=== PATIENT | female | born 1965 | race Caucasian/White ===

== ENCOUNTER 2017-01-31 11:52 | Inpatient (IN) | payer BC ==
--- NOTE | 2017-01-31 12:01 | EDM.PDOC ---
ED HPI GENERAL MEDICAL PROBLEM - General Chief Complaint: Skin Complaint Stated Complaint: INFECTION IN FEET Time Seen by Provider: 01/31/17 12:01 Source of Information: Reports: Patient - History of Present Illness INITIAL COMMENTS - FREE TEXT/NARRATIVE: HISTORY AND PHYSICAL: History of present illness: Patient presents from [facility] or nurse practitioner Juan F, she is seeing podiatry through [facility] as well for diabetic foot ulcer on her left foot, she has been on Bactrim day 3 of 10 with improvement of her diabetic foot ulcer however she has expanding cellulitis failing oral antibiotics Patient course started on January 12, she has had several visits with podiatry as well as Jaun F, is initially on Keflex, currently on Bactrim with worsening of symptoms No fever nausea vomiting chills sweats Review of systems: As per history of present illness and below otherwise all systems reviewed and negative. Past medical history: As per history of present illness and as reviewed below otherwise noncontributory. Surgical history: As per history of present illness and as reviewed below otherwise noncontributory. Social history: No reported history of drug or alcohol abuse. Family history: As per history of present illness and as reviewed below otherwise noncontributory. Physical exam: HEENT: Atraumatic, normocephalic, pupils reactive, negative for conjunctival pallor or scleral icterus, mucous membranes moist, throat clear, neck supple, nontender, trachea midline. Lungs: Clear to auscultation, breath sounds equal bilaterally, chest nontender. Heart: S1S2, regular, negative for clicks, rubs, or JVD. Abdomen: Soft, nondistended, nontender. Negative for masses or hepatosplenomegaly. Negative for costovertebral tenderness. Pelvis: Stable nontender. Genitourinary: Deferred. Rectal: Deferred. Extremities: Atraumatic, negative for cords or calf pain. Neurovascular unremarkable. Neuro: Awake, alert, oriented. Cranial nerves II through XII unremarkable. Cerebellum unremarkable. Motor and sensory unremarkable throughout. Exam nonfocal. Left foot redness warmth and tenderness over the entire dorsum of the foot extending medially just over the ankle, healing diabetic foot ulcer noted no exudate for culture Diagnostics: []CBC, CMP, UA Blood culture 2 Therapeutics: []Vancomycin 1 g IV Impression: []Diabetic foot ulcer Cellulitis left foot Failed outpatient antibiotics Definitive disposition and diagnosis as appropriate pending reevaluation and review of above. Bilateral Feet Pain Score (Numeric/FACES): 7 - Related Data Allergies Allergy/AdvReac Type Severity Reaction Status Date / Time erythromycin base Allergy Hives Verified 01/31/17 11:57 latex Allergy Rash Verified 01/31/17 11:57 Clear Medical Tape Allergy Rash Uncoded 01/31/17 11:57 Home Meds: Home Meds Celecoxib [CeleBREX] 200 mg PO DAILY 07/22/16 [History] Cyclobenzaprine [Flexeril] 20 mg PO BID 07/22/16 [History] Omeprazole 20 mg PO TID 07/22/16 [History] Pregabalin [Lyrica] 200 mg PO TID 07/22/16 [History] amLODIPine [Norvasc] 5 mg PO DAILY 07/22/16 [History] Sulfamethoxazole/Trimethoprim [Septra DS] 800 mg PO BID 01/31/17 [History] Past Medical History HEENT History: Reports: None Cardiovascular History: Reports: Hypertension Respiratory History: Reports: None Gastrointestinal History: Reports: None Genitourinary History: Reports: None 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 Musculoskeletal History: Reports: Fibromyalgia, RA Neurological History: Reports: None Psychiatric History: Reports: None Endocrine/Metabolic History: Reports: None Hematologic History: Reports: None Immunologic History: Reports: None Oncologic (Cancer) History: Reports: None Dermatologic History: Reports: None - Infectious Disease History Infectious Disease History: Reports: Chicken Pox - Past Surgical History Neurological Surgical History: Reports: Other (See Below) Musculoskeletal Surgical History: Reports: Other (See Below) Social & Family History - Family History Family Medical History: Noncontributory - Tobacco Use Smoking Status *Q: Current Every Day Smoker Years of Tobacco use: 20 Packs/Tins Daily: 1 - Caffeine Use Caffeine Use: Reports: Coffee - Recreational Drug Use Recreational Drug Use: No ED ROS GENERAL - Review of Systems Review Of Systems: ROS reveals no pertinent complaints other than HPI. ED EXAM, SKIN/RASH Exam: See Below Course - Vital Signs Last Recorded V/S: Last Vital Signs Temp 35.7 C 01/31/17 12:00 Pulse 96 01/31/17 12:00 Resp 18 01/31/17 12:00 BP 132/83 01/31/17 12:00 Pulse Ox 98 01/31/17 12:00 - Orders/Labs/Meds Orders: Active Orders 24 hr Category Date Time Status Foot 2V Rt [CR] Stat Exams 01/31/17 13:01 Ordered CULTURE BLOOD [BC] Stat Lab 01/31/17 12:18 Received CULTURE BLOOD [BC] Stat Lab 01/31/17 12:35 Received SEDIMENTATION RATE AUTO [HEME] Stat Lab 01/31/17 12:18 Received UA W/MICROSCOPIC [URIN] Stat Lab 01/31/17 12:00 Uncollected Sodium Chloride 0.9% [Normal Saline] 1,000 ml Med 01/31/17 12:15 Active IV STAT Blood Culture x2 Reflex Set [OM.PC] Stat Oth 01/31/17 12:10 Ordered Medication Orders Sodium Chloride (Normal Saline) 1,000 mls @ 125 mls/hr IV STAT GLENDA Last Admin: 01/31/17 12:38 Dose: 125 mls/hr Labs: Laboratory Tests 01/31/17 01/31/17 Range/Units 12:18 12:18 WBC 6.34 (4.0-11.0) K/uL RBC 4.20 L (4.30-5.90) M/uL Hgb 13.5 (12.0-16.0) g/dL Hct 39.9 (36.0-46.0) % MCV 95.0 (80.0-98.0) fL MCH 32.1 H (27.0-32.0) pg MCHC 33.8 (31.0-37.0) g/dL RDW Std Deviation 48.6 (28.0-62.0) fl RDW Coeff of Fouzia 14 (11.0-15.0) % Plt Count 211 (150-400) K/uL MPV 10.30 (7.40-12.00) fL Neut % (Auto) 65.8 (48.0-80.0) % Lymph % (Auto) 25.1 (16.0-40.0) % [place] % (Auto) 6.3 (0.0-15.0) % Eos % (Auto) 2.5 (0.0-7.0) % Baso % (Auto) 0.3 (0.0-1.5) % Neut # (Auto) 4.2 (1.4-5.7) K/uL Lymph # (Auto) 1.6 (0.6-2.4) K/uL [place] # (Auto) 0.4 (0.0-0.8) K/uL Eos # (Auto) 0.2 (0.0-0.7) K/uL Baso # (Auto) 0.0 (0.0-0.1) K/uL Nucleated RBC % 0.0 /100WBC Nucleated RBCs # 0 K/uL Sodium 138 (136-146) mmol/L Potassium 4.0 (3.5-5.1) mmol/L Chloride 102 (98-110) mmol/L Carbon Dioxide 25 (21-31) mmol/L BUN 15 (6.0-23.0) mg/dL Creatinine 0.9 (0.6-1.5) mg/dL Est Cr Clr Drug Dosing 70.30 mL/min Estimated GFR (MDRD) > 60.0 ml/min Glucose 93 (60-110) mg/dL Calcium 9.6 (8.8-10.8) mg/dL Total Bilirubin 0.5 (0.1-1.5) mg/dL AST 29 (5-40) IU/L ALT 30 (8-54) IU/L Alkaline Phosphatase 88 (40-150) Total Protein 8.1 H (6.0-8.0) g/dL Albumin 4.2 (3.5-5.0) g/dL Globulin 3.9 H (2.0-3.5) g/dL Albumin/Globulin Ratio 1.1 L (1.3-2.8) Meds: Medications Generic Name Dose Route Start Last Admin Trade Name Freq PRN Reason Stop Dose Admin Sodium Chloride 1,000 mls @ 125 mls/hr 01/31/17 12:15 01/31/17 12:38 Normal Saline IV 125 mls/hr STAT GLENDA Administration Discontinued Medications Generic Name Dose Route Start Last Admin Trade Name Freq PRN Reason Stop Dose Admin Vancomycin HCl 1 gm/ Sodium 250 mls @ 250 mls/hr 01/31/17 12:11 01/31/17 12: 39 Chloride IV 01/31/17 13:10 250 mls/hr ONETIME ONE Administration Departure - Departure Time of Disposition: 13:13 Disposition: Admitted As Inpatient 64 Condition: Fair Clinical Impression: Cellulitis, Diabetic foot ulcer - Discharge Information Forms: ED Department Discharge - My Orders Last 24 Hours: My Active Orders 01/31/17 12:00 UA W/MICROSCOPIC [URIN] Stat 01/31/17 12:10 Blood Culture x2 Reflex Set [OM.PC] Stat 01/31/17 12:15 Sodium Chloride 0.9% [Normal Saline] 1,000 ml IV STAT 01/31/17 12:18 CULTURE BLOOD [BC] Stat SEDIMENTATION RATE AUTO [HEME] Stat 01/31/17 12:35 CULTURE BLOOD [BC] Stat 01/31/17 13:01 Foot 2V Rt [CR] Stat - Assessment/Plan Last 24 Hours: My Active Orders 01/31/17 12:00 UA W/MICROSCOPIC [URIN] Stat 01/31/17 12:10 Blood Culture x2 Reflex Set [OM.PC] Stat 01/31/17 12:15 Sodium Chloride 0.9% [Normal Saline] 1,000 ml IV STAT 01/31/17 12:18 CULTURE BLOOD [BC] Stat SEDIMENTATION RATE AUTO [HEME] Stat 01/31/17 12:35 CULTURE BLOOD [BC] Stat 01/31/17 13:01 Foot 2V Rt [CR] Stat
[2017-01-31] MEDS ORDERED: Sodium Chloride 0.9% 1,000 ML IV SCH (12:15)
[2017-01-31 13:06] LABS: CHLORIDE,CL 102 mmol/L (98-110); SODIUM,NA 138 mmol/L (136-146)
--- NOTE | 2017-01-31 13:27 | CR ---
EXAMINATION: Left foot HISTORY: Swelling COMPARISON: 03/12/2012 TECHNIQUE: 2 views FINDINGS: There is no acute osseous abnormality, dislocation, or fracture. There is an old healed se cond metatarsal fracture identified. Moderate hallux valgus is noted. Tiny plantar calcaneal spur. P unctate densities project over subcutaneous mild dorsal soft tissue swelling also noted overlying th e forefoot. Plantar surface of the heel. IMPRESSION: 1. No acute osseous abdomen identified. Soft tissue swelling noted over the forefoot. 2. Hallux valgus.
[2017-01-31] MEDS ORDERED: Acetaminophen 325 MG Tab PO PRN (13:48)
[2017-01-31] MEDS ORDERED: oxyCODONE 5 MG Tab PO PRN (13:48)
[2017-01-31] MEDS ORDERED: Ondansetron 4 MG/2 ML SDV IVPUSH PRN (13:48)
[2017-01-31] MEDS ORDERED: Omeprazole 20 MG Cap.CR PO SCH (14:00)
--- NOTE | 2017-01-31 14:03 | PCM.HP ---
H&P History of Present Illness - General Date of Service: 01/31/17 Admit Problem/Dx: L foot cellulitis - History of Present Illness Initial Comments - Free Text/Narative: This 51 year old female with pmh of RA, HTN, and severe bunions to bilateral feet presented to the ED today with concerns of erythema to L foot which has worsened after being on both Keflex and Bactrim. She reports around January 12, she started having some troubles with open skin to her bunions and callouses. She was seen by Elizabeth Rogel TUTORING ASSISTANT at [place] at that time and was placed on Keflex, nothing changed and she saw Elizabeth again on this last Sunday. Podiatry was in the clinic at this time and was able to see her. Dr. Casillas debrided both bunions and callouses to bilateral feet. He then placed her on Bactrim BID. She is on day 3 of this and is noticing worsening redness and pain to L foot. She was urged to be seen in the ED due to failed outpatient treatment for cellulitis. She denies fevers or chills at home, no chest pain, SOB or palpitations. Some nausea with taking Bactrim. No abdominal pain, urinary symptoms or diarrhea. In the ED no leukocytosis was noted. BMP WNL. ESR elevated at 57. L foot xray reveals soft tissue swelling over L forefoot. No acute osseous abnormality noted. Moderate hallux valgus noted. BC obtained and pending. She was treated with Vancomycin. She will be admitted for failed outpatient management of L foot cellulitis PCP, Elizabeth Rogel NP Bilateral Feet Pain Score (Numeric/FACES): 7 - Related Data Allergies/Adverse Reactions: Allergies Allergy/AdvReac Type Severity Reaction Status Date / Time erythromycin base Allergy Hives Verified 01/31/17 11:57 latex Allergy Rash Verified 01/31/17 11:57 Clear Medical Tape Allergy Rash Uncoded 01/31/17 11:57 Home Medications: Home Meds Celecoxib [CeleBREX] 200 mg PO DAILY 07/22/16 [History] Cyclobenzaprine [Flexeril] 20 mg PO BID 07/22/16 [History] Omeprazole 20 mg PO TID 07/22/16 [History] Pregabalin [Lyrica] 200 mg PO TID 07/22/16 [History] amLODIPine [Norvasc] 5 mg PO DAILY 07/22/16 [History] Sulfamethoxazole/Trimethoprim [Septra DS] 800 mg PO BID 01/31/17 [History] Past Medical History HEENT History: Reports: None Cardiovascular History: Reports: Hypertension, Other (See Below) (pericardial effusion, which was drained approx 2008.). Denies: Afib, Blood Clots/VTE/DVT, [place] Respiratory History: Reports: None. Denies: COPD, SOB Gastrointestinal History: Reports: GERD. Denies: GI Bleed Genitourinary History: Reports: None. 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 Musculoskeletal History: Reports: Fibromyalgia, RA Neurological History: Reports: None Psychiatric History: Reports: None Endocrine/Metabolic History: Reports: None Hematologic History: Reports: None Immunologic History: Reports: None Oncologic (Cancer) History: Reports: None Dermatologic History: Reports: None - Infectious Disease History Infectious Disease History: Reports: Chicken Pox - Past Surgical History Neurological Surgical History: Reports: Other (See Below) Musculoskeletal Surgical History: Reports: Other (See Below) Social & Family History - Family History Family Medical History: Noncontributory - Tobacco Use Smoking Status *Q: Current Every Day Smoker Years of Tobacco use: 20 Packs/Tins Daily: 1 Used Tobacco, but Quit: No Second Hand Smoke Exposure: No - Caffeine Use Caffeine Use: Reports: Coffee - Alcohol Use Number of Drinks Per Day: 3 Alcohol Use Frequency: Daily - Recreational Drug Use Recreational Drug Use: No - Living Situation & Occupation Living situation: Reports: Occupation: Employed H&P Review of Systems - Review of Systems: Review Of Systems: See Below General: Reports: No Symptoms. Denies: Fever, Chills, Malaise HEENT: Reports: No Symptoms. Denies: Headaches, Sinus Congestion, Sore Throat Pulmonary: Reports: No Symptoms. Denies: Shortness of Breath, Cough, Sputum Cardiovascular: Reports: Edema (bilateral feet). Denies: Chest Pain, Palpitations Gastrointestinal: Reports: Nausea (with Bactrim dosing). Denies: Abdominal Pain , Black Stool, Bloody Stool, Vomiting Genitourinary: Reports: No Symptoms. Denies: Dysuria, Frequency, Burning Musculoskeletal: Reports: Foot Pain (L & R feet and bunion pain) Skin: Reports: Erythema (L foot), Wound Psychiatric: Reports: No Symptoms Neurological: Reports: No Symptoms Exam - Exam Exam: See Below - Vital Signs Vital Signs: Last Vital Signs Temp 96.3 F 01/31/17 12:00 Pulse 96 01/31/17 12:00 Resp 18 01/31/17 12:00 BP 132/83 01/31/17 12:00 Pulse Ox 98 01/31/17 12:00 Weight: 86.3 kg - Exam General: Alert, Oriented, Cooperative HEENT: Conjunctiva Clear, Hearing Intact, Mucosa Moist & [place], Posterior Pharynx Clear, Pupils Equal, Pupils Reactive, PERRLA Neck: Supple, Trachea Midline, 2 Lungs: Clear to Auscultation, Normal Respiratory Effort Cardiovascular: Regular Rate, Regular Rhythm, Normal S1, Normal S2 GI/Abdominal Exam: Normal Bowel Sounds, Soft, Non-Tender, No Organomegaly, No Distention, No Abnormal Bruit, No Mass, Pelvis Stable Extremities: Normal Range of Motion, Normal Capillary Refill, Pedal Edema, Joint Swelling, Other (bunions noted to both L and R feet, with open skit to both. No purulent drainage, both wound bend clean. Some dry flaky skin noted surround these areas andfurther callouses. Erythem extends from L bunion up to dorsum and medial malleous to ventral damon. Warm and tenderness noted to any palpation. No fluctuance noted.) Skin: Wound (See above description) Neurological: Cranial Nerves Intact Neuro Extensive - Mental Status: Alert, Oriented x3, Normal Mood/Affect, Normal Cognition, Memory Intact Psychiatric: Alert, Normal Affect, Normal Mood - Patient Data Result Diagrams: 01/31/17 12:18 01/31/17 12:18 *Q Meaningful Use (ADM) - VTE *Q VTE Criteria *Q: - VTE Risk Assess *Q Each Risk Factor Represents 1 Point: Age 41 - 59 years, Swollen Legs, Current Total Score 1 Point Risk Factors: 2 Each Risk Factor Represents 2 Points: None Total Score 2 Point Risk Factors: 0 Each Risk Factor Represents 3 Points: None Total Score 3 Point Risk Factors: 0 Each Risk Factor Represents 5 Points: None Total Score 5 Point Risk Factors: 0 Venous Thromboembolism Risk Factor Score *Q: 2 - Stroke *Q Stroke Criteria *Q: - AMI *Q AMI Criteria *Q: - Problem List (1) Cellulitis SNOMED Code(s): 739122893 ICD Code: L03.90 - CELLULITIS, UNSPECIFIED Status: Acute Current Visit: Yes Qualifiers: Site of cellulitis: extremity Site of cellulitis of extremity: lower extremity Laterality: left Qualified Code(s): L03.116 - Cellulitis of left lower limb (2) RA (rheumatoid arthritis) SNOMED Code(s): 85253172 ICD Code: M06.9 - RHEUMATOID ARTHRITIS, UNSPECIFIED Status: Chronic Current Visit: Yes Qualifiers: Rheumatoid arthritis location: wrist Laterality: bilateral (3) Fibromyalgia SNOMED Code(s): 173882630 ICD Code: M79.7 - FIBROMYALGIA Status: Chronic Current Visit: Yes (4) Hallux valgus (acquired), left foot SNOMED Code(s): 30837768 ICD Code: M20.12 - HALLUX VALGUS (ACQUIRED), LEFT FOOT Status: Chronic Current Visit: Yes (5) Hallux valgus (acquired), right foot SNOMED Code(s): 56707472 ICD Code: M20.11 - HALLUX VALGUS (ACQUIRED), RIGHT FOOT Status: Chronic Current Visit: Yes (6) HTN (hypertension) SNOMED Code(s): 07573524 ICD Code: I10 - ESSENTIAL (PRIMARY) HYPERTENSION Status: Chronic Current Visit: Yes Qualifiers: Hypertension type: essential hypertension Qualified Code(s): I10 - Essential (primary) hypertension (7) Nicotine abuse SNOMED Code(s): 23539470 ICD Code: Z72.0 - TOBACCO USE Status: Chronic Current Visit: Yes Problem List Initiated/Reviewed/Updated: Yes Orders Last 24hrs: Active Orders 24 hr Category Date Time Status Ambulate [RC] ASDIRECTED Care 01/31/17 13:48 Ordered Elevate Extremity [RC] BID Care 01/31/17 13:48 Ordered Oxygen Therapy [RC] PRN Care 01/31/17 13:48 Ordered VTE/DVT Education [RC] PER UNIT ROUTINE Care 01/31/17 13:48 Ordered Vital Signs [RC] Q4H Care 01/31/17 13:48 Ordered Wound Care [RC] DAILY Care 01/31/17 13:48 Ordered Regular Diet [DIET] Diet 01/31/17 Dinner Ordered BASIC METABOLIC PANEL,BMP [CHEM] AM Lab 02/01/17 05:11 Ordered BASIC METABOLIC PANEL,BMP [CHEM] AM Lab 02/02/17 05:11 Ordered BASIC METABOLIC PANEL,BMP [CHEM] AM Lab 02/03/17 05:11 Ordered CBC WITH AUTO DIFF [HEME] AM Lab 02/01/17 05:11 Ordered CBC WITH AUTO DIFF [HEME] AM Lab 02/02/17 05:11 Ordered CBC WITH AUTO DIFF [HEME] AM Lab 02/03/17 05:11 Ordered Acetaminophen [Tylenol] Med 01/31/17 13:48 Ordered 650 mg PO Q4H PRN Cyclobenzaprine [Flexeril] Med 01/31/17 21:00 Ordered 20 mg PO BID Enoxaparin [Lovenox] Med 01/31/17 14:00 Ordered 40 mg SUBCUT DAILY Omeprazole [Omeprazole] Med 01/31/17 14:00 Ordered 20 mg PO TID Ondansetron [Zofran] Med 01/31/17 13:48 Ordered 4 mg IVPUSH Q4H PRN Pregabalin [Lyrica] Med 01/31/17 14:00 Ordered 200 mg PO TID Vancomycin Pharmacy to Dose [Pharmacy to Dose - Med 01/31/17 14:00 Ordered Vancomycin] 1 dose .XX ASDIRECTED amLODIPine [Norvasc] Med 02/01/17 09:00 Ordered 5 mg PO DAILY oxyCODONE Med 01/31/17 13:48 Ordered 5 mg PO Q4H PRN Resuscitation Status Routine Resus Stat 01/31/17 13:48 Ordered Medication Orders Sodium Chloride (Normal Saline) 1,000 mls @ 125 mls/hr IV STAT GLENDA Last Admin: 01/31/17 12:38 Dose: 125 mls/hr Assessment/Plan Comment:: This 51 year old female admitted with L foot cellulitis, which failed outpatient treatment 1. Cellulitis: Will place on Vancomycin. Continue betadine cleanse and gauze wraps per Podiatry. Monitor closely. ESR elevated. No drainage. BC pending. Will order Oxycodone for pain PRN 2. Open wounds: Continue betadine and gauze wrap to bilateral bunions as per Podiatry. 3. HTN: Continue Norvasc 4. Fibromyalgia: Continue Flexeril and Gabapentin VTE prophylaxis: Lovenox Dispo: 2-3 days.
[2017-01-31] MEDS: Enoxaparin 40 MG/0.4 ML Syringe SUBCUT SCH (14:22)
[2017-01-31] MEDS: Pregabalin 200 MG Cap PO SCH ×2 (14:22→21:09)
[2017-01-31] MEDS: Nicotine 14 MG/24 Hr Patch TRDERM SCH (14:22)
[2017-01-31] MEDS: Docusate Sodium 100 MG Cap PO SCH (15:08)
[2017-01-31] MEDS: Polyethylene Glycol 3350 Powder 17 GM Packet PO SCH (15:08)
[2017-01-31] MEDS: Morphine 4 MG/ML Syringe IVPUSH PRN ×2 (15:24→21:09)
[2017-01-31] MEDS: Pantoprazole 40 MG Tab.CR PO SCH (16:16)
[2017-01-31] MEDS: oxyCODONE 5 MG Tab PO PRN (18:24)
[2017-01-31] MEDS ORDERED: Gadobenate Dimeglumine 529 MG/ML 20 ML SDV IVPUSH STA (19:36)
[2017-01-31] MEDS: Cyclobenzaprine 10 MG Tab PO SCH (21:09)
[2017-02-01] MEDS: oxyCODONE 5 MG Tab PO PRN ×3 (00:37→15:09)
[2017-02-01] MEDS: Morphine 4 MG/ML Syringe IVPUSH PRN ×4 (04:09→22:35)
[2017-02-01 05:48] LABS: CHLORIDE,CL 107 mmol/L (98-110); SODIUM,NA 140 mmol/L (136-146)
[2017-02-01] MEDS: Pregabalin 200 MG Cap PO SCH ×3 (06:31→21:32)
[2017-02-01] MEDS: Pantoprazole 40 MG Tab.CR PO SCH ×2 (06:31→16:28)
--- NOTE | 2017-02-01 08:17 | PCM.PN ---
- General Info Date of Service: 02/01/17 Admission Dx/Problem (Free Text): L foot cellulitis Subjective Update: Continues to have throbbing pain to bilateral botttoms of feet. Denies chest pain or SOB. erythema improving. Functional Status: Reports: Pain Controlled, Tolerating Diet, Ambulating, Urinating - Review of Systems General: Reports: No Symptoms. Denies: Fever HEENT: Reports: No Symptoms Pulmonary: Reports: No Symptoms. Denies: Shortness of Breath Cardiovascular: Reports: No Symptoms. Denies: Chest Pain Gastrointestinal: Reports: No Symptoms. Denies: Abdominal Pain, Nausea, Vomiting Genitourinary: Reports: No Symptoms. Denies: Dysuria, Frequency, Burning, Pain Musculoskeletal: Reports: No Symptoms Skin: Reports: No Symptoms Neurological: Reports: No Symptoms Psychiatric: Reports: No Symptoms - Patient Data Vitals - Most Recent: Last Vital Signs Temp 97.1 F 02/01/17 08:00 Pulse 76 02/01/17 08:00 Resp 22 H 02/01/17 08:00 BP 99/62 02/01/17 08:00 Pulse Ox 93 L 02/01/17 08:00 Weight - Most Recent: 86.3 kg I&O - Last 24 Hours: Intake & Output 01/31/17 02/01/17 02/01/17 22:59 06:59 14:59 Intake Total 1000 2400 Output Total 2500 Balance 1000 -100 Lab Results Last 24 Hours: Laboratory Results - last 24 hr 01/31/17 02/01/17 02/01/17 Range/Units 15:40 04:40 04:40 WBC 4.34 (4.0-11.0) K/uL RBC 3.96 L (4.30-5.90) M/uL Hgb 12.5 (12.0-16.0) g/dL Hct 38.3 (36.0-46.0) % MCV 96.7 (80.0-98.0) fL MCH 31.6 (27.0-32.0) pg MCHC 32.6 (31.0-37.0) g/dL RDW Std Deviation 50.0 (28.0-62.0) fl RDW Coeff of Fouzia 14 (11.0-15.0) % Plt Count 192 (150-400) K/uL MPV 9.80 (7.40-12.00) fL Neut % (Auto) 51.0 (48.0-80.0) % Lymph % (Auto) 34.3 (16.0-40.0) % [place] % (Auto) 9.9 (0.0-15.0) % Eos % (Auto) 4.1 (0.0-7.0) % Baso % (Auto) 0.7 (0.0-1.5) % Neut # (Auto) 2.2 (1.4-5.7) K/uL Lymph # (Auto) 1.5 (0.6-2.4) K/uL [place] # (Auto) 0.4 (0.0-0.8) K/uL Eos # (Auto) 0.2 (0.0-0.7) K/uL Baso # (Auto) 0.0 (0.0-0.1) K/uL Nucleated RBC % 0.0 /100WBC Nucleated RBCs # 0 K/uL Sodium 140 (136-146) mmol/L Potassium 4.4 (3.5-5.1) mmol/L Chloride 107 (98-110) mmol/L Carbon Dioxide 25 (21-31) mmol/L BUN 15 (6.0-23.0) mg/dL Creatinine 0.8 (0.6-1.5) mg/dL Est Cr Clr Drug Dosing 79.08 mL/min Estimated GFR (MDRD) > 60.0 ml/min Glucose 86 (60-110) mg/dL Calcium 8.9 (8.8-10.8) mg/dL Urine Color YELLOW Urine Appearance CLEAR Urine pH 6.5 (5.0-8.0) Ur Specific [place] <= 1.005 (1.001-1.035) Urine Protein NEGATIVE (NEGATIVE) mg/dL Urine Glucose (UA) NEGATIVE (NEGATIVE) mg/dL Urine Ketones NEGATIVE (NEGATIVE) mg/dL Urine Occult Blood NEGATIVE (NEGATIVE) Urine Nitrite NEGATIVE (NEGATIVE) Urine Bilirubin NEGATIVE (NEGATIVE) Urine Urobilinogen 0.2 (<2.0) EU/dL Ur Leukocyte Esterase NEGATIVE (NEGATIVE) Urine RBC 0-1 (0-2/HPF) Urine WBC 0-1 (0-5/HPF) Ur Epithelial Cells RARE (NONE-FEW) Urine Bacteria RARE (NEGATIVE) Med Orders - Current: Current Medications Acetaminophen (Tylenol) 650 mg PO Q4H PRN PRN Reason: Pain Amlodipine Besylate (Norvasc) 5 mg PO DAILY [facility] Cyclobenzaprine HCl (Flexeril) 20 mg PO BID [facility] Last Admin: 01/31/17 21:09 Dose: 20 mg Docusate Sodium (Colace) 100 mg PO DAILY [facility] Last Admin: 01/31/17 15:08 Dose: 100 mg Enoxaparin Sodium (Lovenox) 40 mg SUBCUT DAILY [facility] Last Admin: 01/31/17 14:22 Dose: 40 mg Vancomycin HCl 1,250 mg/ (Sodium Chloride) 250 mls @ 250 mls/hr IV Q12H [facility] Last Admin: 01/31/17 23:15 Dose: 250 mls/hr Morphine Sulfate (Morphine) 3 mg IVPUSH Q4H PRN PRN Reason: Pain Last Admin: 02/01/17 04:09 Dose: 3 mg Nicotine (Habitrol) 14 mg TRDERM DAILY [facility] Last Admin: 01/31/17 14:22 Dose: 14 mg Ondansetron HCl (Zofran) 4 mg IVPUSH Q4H PRN PRN Reason: Nausea Oxycodone HCl (Oxycodone) 5 - 10 mg PO Q4H PRN PRN Reason: Pain (moderate 4-6) Last Admin: 02/01/17 08:04 Dose: 10 mg Pantoprazole Sodium (Protonix) 40 mg PO BIDAC [facility] Last Admin: 02/01/17 06:31 Dose: 40 mg Polyethylene Glycol (Miralax) 17 gm PO DAILY [facility] Last Admin: 01/31/17 15:08 Dose: 17 gm Pregabalin (Lyrica) 200 mg PO TID [facility] Last Admin: 02/01/17 06:31 Dose: 200 mg Vancomycin HCl (Pharmacy To Dose - Vancomycin) 1 dose .XX ASDIRECTED [facility] Discontinued Medications Gadobenate Dimeglumine (Multihance) 20 ml IVPUSH ONETIME STA Stop: 01/31/17 19:37 Last Admin: 01/31/17 19:37 Dose: 16 ml Sodium Chloride (Normal Saline) 1,000 mls @ 125 mls/hr IV STAT [facility] Last Admin: 01/31/17 12:38 Dose: 125 mls/hr Vancomycin HCl 1 gm/ Sodium (Chloride) 250 mls @ 250 mls/hr IV ONETIME ONE Stop: 01/31/17 13:10 Last Admin: 01/31/17 12:39 Dose: 250 mls/hr Vancomycin HCl 1,500 mg/ (Sodium Chloride) 500 mls @ 333.333 mls/hr IV Q12H [facility] Vancomycin HCl 1,250 mg/ (Sodium Chloride) 250 mls @ 250 mls/hr IV Q12H [facility] Omeprazole (Omeprazole) 20 mg PO TID [facility] Last Admin: 01/31/17 14:24 Dose: 20 mg Oxycodone HCl (Oxycodone) 5 mg PO Q4H PRN PRN Reason: Pain (moderate 4-6) Last Admin: 01/31/17 14:23 Dose: 5 mg - Exam General: Alert, Oriented, Cooperative, No Acute Distress Neck: Supple Lungs: Clear to Auscultation, Normal Respiratory Effort Cardiovascular: Regular Rate, Regular Rhythm Extremities: Normal Inspection, Normal Capillary Refill, Pedal Edema (improving with elevation of limbs) Wound/Incisions: Erythema Improving (to L medial ankle and dorsum of foot. Open fissures noted to bilateral bunion and callouses. no drainage, ) Psy/Mental Status: Alert, Normal Affect, Normal Mood - Problem List & Annotations (1) Cellulitis SNOMED Code(s): 640222871 Code(s): L03.90 - CELLULITIS, UNSPECIFIED Status: Acute Current Visit: Yes Qualifiers: Site of cellulitis: extremity Site of cellulitis of extremity: lower extremity Laterality: left Qualified Code(s): L03.116 - Cellulitis of left lower limb (2) RA (rheumatoid arthritis) SNOMED Code(s): 46994803 Code(s): M06.9 - RHEUMATOID ARTHRITIS, UNSPECIFIED Status: Chronic Current Visit: Yes Qualifiers: Rheumatoid arthritis location: wrist Laterality: bilateral (3) Fibromyalgia SNOMED Code(s): 470554886 Code(s): M79.7 - FIBROMYALGIA Status: Chronic Current Visit: Yes (4) Hallux valgus (acquired), left foot SNOMED Code(s): 35712417 Code(s): M20.12 - HALLUX VALGUS (ACQUIRED), LEFT FOOT Status: Chronic Current Visit: Yes (5) Hallux valgus (acquired), right foot SNOMED Code(s): 17439482 Code(s): M20.11 - HALLUX VALGUS (ACQUIRED), RIGHT FOOT Status: Chronic Current Visit: Yes (6) HTN (hypertension) SNOMED Code(s): 07383670 Code(s): I10 - ESSENTIAL (PRIMARY) HYPERTENSION Status: Chronic Current Visit: Yes Qualifiers: Hypertension type: essential hypertension Qualified Code(s): I10 - Essential (primary) hypertension (7) Nicotine abuse SNOMED Code(s): 69110608 Code(s): Z72.0 - TOBACCO USE Status: Chronic Current Visit: Yes - Problem List Review Problem List Initiated/Reviewed/Updated: Yes - My Orders Last 24 Hours: My Active Orders 01/31/17 13:48 Ambulate [RC] ASDIRECTED Elevate Extremity [RC] BID Oxygen Therapy [RC] PRN VTE/DVT Education [RC] PER UNIT ROUTINE Vital Signs [RC] Q4H Wound Care [RC] DAILY Acetaminophen [Tylenol] 650 mg PO Q4H PRN Ondansetron [Zofran] 4 mg IVPUSH Q4H PRN Resuscitation Status Routine 01/31/17 14:00 Enoxaparin [Lovenox] 40 mg SUBCUT DAILY Pregabalin [Lyrica] 200 mg PO TID Vancomycin Pharmacy to Dose [Pharmacy to Dose - Vancomycin] 1 dose .XX ASDIRECTED 01/31/17 14:15 Nicotine [Habitrol] 14 mg TRDERM DAILY 01/31/17 15:00 Docusate Sodium [Colace] 100 mg PO DAILY Polyethylene Glycol 3350 [MiraLAX] 17 gm PO DAILY 01/31/17 15:11 Morphine 3 mg IVPUSH Q4H PRN 01/31/17 15:12 oxyCODONE 5 - 10 mg PO Q4H PRN 01/31/17 16:55 Foot w Cont Lt [MR] Routine 01/31/17 17:00 Pantoprazole [ProTONIX] 40 mg PO BIDAC 01/31/17 21:00 Cyclobenzaprine [Flexeril] 20 mg PO BID 01/31/17 Dinner Regular Diet [DIET] 02/01/17 08:12 Foot wo Cont Lt [MR] Routine 02/01/17 08:16 Communication Order [RC] PRN 02/01/17 09:00 amLODIPine [Norvasc] 5 mg PO DAILY 02/02/17 05:11 BASIC METABOLIC PANEL,BMP [CHEM] AM CBC WITH AUTO DIFF [HEME] AM 02/03/17 05:11 BASIC METABOLIC PANEL,BMP [CHEM] AM CBC WITH AUTO DIFF [HEME] AM - Plan Plan:: This 51 year old female admitted with L foot cellulitis, which failed outpatient treatment 1. Cellulitis: Continue Vancomycin. Continue betadine cleanse and gauze wraps per Podiatry. No drainage. BC negative x 1. Oxycodone for pain PRN. MRI negative for Osteomyelitis. 2. Open wounds: Continue betadine and gauze wrap to bilateral bunions as per Podiatry. Consult PT for wound care 3. HTN: Continue Norvasc 4. Fibromyalgia: Continue Flexeril and Gabapentin VTE prophylaxis: Lovenox Dispo: 2-3 days.
--- NOTE | 2017-02-01 09:15 | MR ---
EXAM DATE: 01/31/17 PATIENT'S AGE: 51 Patient: RONDA MCCALL Facility: [place], [place] : 1965 Study: MRI Extremity Left [id number] 8:47:56 PM Ordering Physician: Genesis Patel Final Report: HISTORY: Left foot cellulitis. Evaluate for osteomyelitis. Technique: Axial, sagittal and coronal T1, proton density, proton density fat-sat, STIR and post contrast T1 weighted images with fat saturation were obtained of the left foot. Comparison: No prior. Findings: Tendons: Small amount of fluid within the posterior tibial tendon sheath. The tendon itself is intact. The flexor digitorum longus and flexor hallucis longus tendons are intact. There is a small amount of fluid within the extensor digitorum longus tendon sheath suggesting mild tenosynovitis. The anterior extensor tendons appear otherwise intact. Areas longus and brevis tendons are intact. The distal Achilles tendon is intact. - Ligaments: The anterior and posterior syndesmotic ligaments are intact. Deltoid ligament is intact. Lateral ankle ligamentous structures are intact. Sinus tarsi fat is maintained. Calcaneonavicular spring ligament intact. - Joint spaces: The ankle and subtalar joint spaces are maintained. Talonavicular and calcaneocuboid articulations are maintained. Joint spaces within the midfoot and at the midfoot-forefoot junction are maintained. Degenerative changes of the 1st metatarsophalangeal joint. The 2nd through 5th metatarsophalangeal joints are maintained. - Bones and soft tissues: There is subcutaneous signal abnormality enhancement involving the distal lower leg and foot compatible with cellulitis. No localized fluid collection to suggest a discrete soft tissue abscess. No definite osteomyelitis. A bipartite medial sesamoid bone is present with the marrow edema present within the sesamoid. There is no acute fracture. Small plantar calcaneal spur. Mild more chronic appearing thickening of the proximal most central band of the plantar fascia. Impression: 1. Cellulitis of the left lower leg and foot. No localized fluid collection or osteomyelitis. 2. Degenerative changes of the 1st metatarsophalangeal joint. 3. Bipartite medial sesamoid bone with marrow edema within both moieties. 4. Extensor digitorum longus tendon sheath tenosynovitis. The tendons appear otherwise intact. 5. Ankle joint space and ligaments are intact. 6. Small plantar calcaneal spur with mild chronic thickening of the proximal central band of the plantar fascia. Dictated by Pee Cross MD @ Feb 01 2017 7:59AM (Electronic Signature) Report Signed by Proxy. JONATHAN
[2017-02-01] MEDS: Cyclobenzaprine 10 MG Tab PO SCH ×2 (09:22→21:33)
[2017-02-01] MEDS: Enoxaparin 40 MG/0.4 ML Syringe SUBCUT SCH (09:22)
[2017-02-01] MEDS: Docusate Sodium 100 MG Cap PO SCH (09:22)
[2017-02-01] MEDS: Nicotine 14 MG/24 Hr Patch TRDERM SCH (09:23)
[2017-02-01] MEDS: Polyethylene Glycol 3350 Powder 17 GM Packet PO SCH (09:23)
[2017-02-01] MEDS: amLODIPine 5 MG Tab PO SCH (09:24)
[2017-02-01] MEDS ORDERED: Bisacodyl 5 MG Tab PO PRN (10:06)
[2017-02-01] MEDS ORDERED: Morphine 4 MG/ML Syringe IVPUSH ONE (12:11)
[2017-02-02] MEDS: Morphine 4 MG/ML Syringe IVPUSH PRN ×2 (04:22→19:23)
[2017-02-02 05:38] LABS: CHLORIDE,CL 108 mmol/L (98-110); SODIUM,NA 142 mmol/L (136-146)
[2017-02-02] MEDS: Pregabalin 200 MG Cap PO SCH ×3 (06:32→21:36)
[2017-02-02] MEDS: Pantoprazole 40 MG Tab.CR PO SCH ×2 (06:32→16:31)
[2017-02-02] MEDS: oxyCODONE 5 MG Tab PO PRN ×2 (08:25→13:09)
[2017-02-02] MEDS: Polyethylene Glycol 3350 Powder 17 GM Packet PO SCH (08:25)
[2017-02-02] MEDS: Enoxaparin 40 MG/0.4 ML Syringe SUBCUT SCH (08:26)
[2017-02-02] MEDS: Nicotine 14 MG/24 Hr Patch TRDERM SCH (08:26)
[2017-02-02] MEDS: Docusate Sodium 100 MG Cap PO SCH (08:27)
[2017-02-02] MEDS: Cyclobenzaprine 10 MG Tab PO SCH ×2 (08:27→21:36)
[2017-02-02] MEDS: amLODIPine 5 MG Tab PO SCH (08:28)
--- NOTE | 2017-02-02 11:15 | PCM.PN ---
- General Info Date of Service: 02/02/17 Admission Dx/Problem (Free Text): L foot cellulitis Subjective Update: Doing better today, pain, swelling and erythema improved today. No chest pain or SOB. Functional Status: Reports: Pain Controlled, Tolerating Diet, Ambulating, Urinating - Review of Systems Pulmonary: Reports: No Symptoms. Denies: Shortness of Breath Cardiovascular: Reports: No Symptoms. Denies: Chest Pain Gastrointestinal: Reports: No Symptoms. Denies: Abdominal Pain Genitourinary: Reports: No Symptoms. Denies: Dysuria, Frequency, Burning Skin: Reports: Dryness, Other (erythema improving ot bilateral feet) - Patient Data Vitals - Most Recent: Last Vital Signs Temp 97.4 F 02/02/17 08:06 Pulse 74 02/02/17 08:06 Resp 18 02/02/17 08:06 BP 119/74 02/02/17 08:28 Pulse Ox 91 L 02/02/17 08:06 Weight - Most Recent: 86.3 kg I&O - Last 24 Hours: Intake & Output 02/01/17 02/02/17 02/02/17 22:59 06:59 14:59 Intake Total 1100 1350 Output Total 3600 2150 Balance -2500 -800 Lab Results Last 24 Hours: Laboratory Results - last 24 hr 02/01/17 02/02/17 02/02/17 Range/Units 23:30 04:56 04:56 WBC 5.06 (4.0-11.0) K/uL RBC 3.90 L (4.30-5.90) M/uL Hgb 12.5 (12.0-16.0) g/dL Hct 37.8 (36.0-46.0) % MCV 96.9 (80.0-98.0) fL MCH 32.1 H (27.0-32.0) pg MCHC 33.1 (31.0-37.0) g/dL RDW Std Deviation 50.2 (28.0-62.0) fl RDW Coeff of [place]ouzia 14 (11.0-15.0) % Plt Count 205 (150-400) K/uL MPV 10.30 (7.40-12.00) fL Neut % (Auto) 53.9 (48.0-80.0) % Lymph % (Auto) 33.0 (16.0-40.0) % [place] % (Auto) 8.7 (0.0-15.0) % Eos % (Auto) 3.4 (0.0-7.0) % Baso % (Auto) 1.0 (0.0-1.5) % Neut # (Auto) 2.7 (1.4-5.7) K/uL Lymph # (Auto) 1.7 (0.6-2.4) K/uL [place] # (Auto) 0.4 (0.0-0.8) K/uL Eos # (Auto) 0.2 (0.0-0.7) K/uL Baso # (Auto) 0.1 (0.0-0.1) K/uL Nucleated RBC % 0.0 /100WBC Nucleated RBCs # 0 K/uL Sodium 142 (136-146) mmol/L Potassium 4.2 (3.5-5.1) mmol/L Chloride 108 (98-110) mmol/L Carbon Dioxide 25 (21-31) mmol/L BUN 18 (6.0-23.0) mg/dL Creatinine 0.9 (0.6-1.5) mg/dL Est Cr Clr Drug Dosing 70.30 mL/min Estimated GFR (MDRD) > 60.0 ml/min Glucose 118 H (60-110) mg/dL Calcium 9.1 (8.8-10.8) mg/dL Vancomycin Trough 13.3 (5-15) ug/mL Med Orders - Current: Current Medications Acetaminophen (Tylenol) 650 mg PO Q4H PRN PRN Reason: Pain Last Admin: 02/01/17 16:27 Dose: 650 mg Amlodipine Besylate (Norvasc) 5 mg PO DAILY [facility] Last Admin: 02/02/17 08:28 Dose: 5 mg Bisacodyl (Dulcolax) 5 mg PO DAILY PRN PRN Reason: Constipation Last Admin: 02/01/17 16:28 Dose: 5 mg Cyclobenzaprine HCl (Flexeril) 20 mg PO BID [facility] Last Admin: 02/02/17 08:27 Dose: 20 mg Docusate Sodium (Colace) 100 mg PO DAILY [facility] Last Admin: 02/02/17 08:27 Dose: 100 mg Enoxaparin Sodium (Lovenox) 40 mg SUBCUT DAILY [facility] Last Admin: 02/02/17 08:26 Dose: 40 mg Vancomycin HCl 1,250 mg/ (Sodium Chloride) 250 mls @ 250 mls/hr IV Q12H [facility] Last Infusion: 02/02/17 01:45 Dose: Infused Morphine Sulfate (Morphine) 3 mg IVPUSH Q4H PRN PRN Reason: Pain Last Admin: 02/02/17 04:22 Dose: 3 mg Nicotine (Habitrol) 14 mg TRDERM DAILY [facility] Last Admin: 02/02/17 08:26 Dose: 14 mg Ondansetron HCl (Zofran) 4 mg IVPUSH Q4H PRN PRN Reason: Nausea Oxycodone HCl (Oxycodone) 5 - 10 mg PO Q4H PRN PRN Reason: Pain (moderate 4-6) Last Admin: 02/02/17 08:25 Dose: 10 mg Pantoprazole Sodium (Protonix) 40 mg PO BIDAC [facility] Last Admin: 02/02/17 06:32 Dose: 40 mg Polyethylene Glycol (Miralax) 17 gm PO DAILY [facility] Last Admin: 02/02/17 08:25 Dose: 17 gm Pregabalin (Lyrica) 200 mg PO TID [facility] Last Admin: 02/02/17 06:32 Dose: 200 mg Vancomycin HCl (Pharmacy To Dose - Vancomycin) 1 dose .XX ASDIRECTED [facility] Discontinued Medications Gadobenate Dimeglumine (Multihance) 20 ml IVPUSH ONETIME STA Stop: 01/31/17 19:37 Last Admin: 01/31/17 19:37 Dose: 16 ml Sodium Chloride (Normal Saline) 1,000 mls @ 125 mls/hr IV STAT [facility] Last Admin: 01/31/17 12:38 Dose: 125 mls/hr Vancomycin HCl 1 gm/ Sodium (Chloride) 250 mls @ 250 mls/hr IV ONETIME ONE Stop: 01/31/17 13:10 Last Admin: 01/31/17 12:39 Dose: 250 mls/hr Vancomycin HCl 1,500 mg/ (Sodium Chloride) 500 mls @ 333.333 mls/hr IV Q12H [facility] Vancomycin HCl 1,250 mg/ (Sodium Chloride) 250 mls @ 250 mls/hr IV Q12H [facility] Morphine Sulfate (Morphine) 3 mg IVPUSH ONETIME ONE Stop: 02/01/17 12:12 Last Admin: 02/01/17 12:56 Dose: 3 mg Omeprazole (Omeprazole) 20 mg PO TID [facility] Last Admin: 01/31/17 14:24 Dose: 20 mg Oxycodone HCl (Oxycodone) 5 mg PO Q4H PRN PRN Reason: Pain (moderate 4-6) Last Admin: 01/31/17 14:23 Dose: 5 mg - Exam General: Alert, Oriented, Cooperative, No Acute Distress Lungs: Clear to Auscultation, Normal Respiratory Effort Cardiovascular: Regular Rate, Regular Rhythm Extremities: Normal Inspection, Normal Range of Motion, Non-Tender, No Pedal Edema, Normal Capillary Refill Wound/Incisions: Erythema Improving (To L dorsum of foot and medial ankle much improved, warm still present, no fluctuance noted pain decreased. Crevices to bilateral callouses improving with new dressings.) Psy/Mental Status: Alert, Normal Affect, Normal Mood - Problem List & Annotations (1) Cellulitis SNOMED Code(s): 941235851 Code(s): L03.90 - CELLULITIS, UNSPECIFIED Status: Acute Current Visit: Yes Qualifiers: Site of cellulitis: extremity Site of cellulitis of extremity: lower extremity Laterality: left Qualified Code(s): L03.116 - Cellulitis of left lower limb (2) RA (rheumatoid arthritis) SNOMED Code(s): 49127294 Code(s): M06.9 - RHEUMATOID ARTHRITIS, UNSPECIFIED Status: Chronic Current Visit: Yes Qualifiers: Rheumatoid arthritis location: wrist Laterality: bilateral (3) Fibromyalgia SNOMED Code(s): 197064992 Code(s): M79.7 - FIBROMYALGIA Status: Chronic Current Visit: Yes (4) Hallux valgus (acquired), left foot SNOMED Code(s): 21171614 Code(s): M20.12 - HALLUX VALGUS (ACQUIRED), LEFT FOOT Status: Chronic Current Visit: Yes (5) Hallux valgus (acquired), right foot SNOMED Code(s): 69832586 Code(s): M20.11 - HALLUX VALGUS (ACQUIRED), RIGHT FOOT Status: Chronic Current Visit: Yes (6) HTN (hypertension) SNOMED Code(s): 50634936 Code(s): I10 - ESSENTIAL (PRIMARY) HYPERTENSION Status: Chronic Current Visit: Yes Qualifiers: Hypertension type: essential hypertension Qualified Code(s): I10 - Essential (primary) hypertension (7) Nicotine abuse SNOMED Code(s): 02264948 Code(s): Z72.0 - TOBACCO USE Status: Chronic Current Visit: Yes - Problem List Review Problem List Initiated/Reviewed/Updated: Yes - My Orders Last 24 Hours: My Active Orders 02/01/17 11:24 Consult to Physical Therapy [PT Evaluation and Treatment] [CONS] Routine 02/03/17 05:11 BASIC METABOLIC PANEL,BMP [CHEM] AM CBC WITH AUTO DIFF [HEME] AM - Plan Plan:: This 51 year old female admitted with L foot cellulitis, which failed outpatient treatment 1. Cellulitis: Continue Vancomycin. Wound culture from clinic returned with MRSA. CHILO pending. Continue betadine cleanse and gauze/Xeroform wraps per wound care. No drainage. BC negative x 1. Oxycodone for pain PRN. MRI negative for Osteomyelitis. 2. Open wounds: Continue betadine and gauze wrap to bilateral bunions. Continue to improve, no drainage pain improving. wound beds clean. 3. HTN: Continue Norvasc 4. Fibromyalgia: Continue Flexeril and Gabapentin VTE prophylaxis: Lovenox Dispo: 2-3 days.
[2017-02-03] MEDS: Morphine 4 MG/ML Syringe IVPUSH PRN ×2 (00:25→05:09)
[2017-02-03 05:44] LABS: CHLORIDE,CL 106 mmol/L (98-110); SODIUM,NA 139 mmol/L (136-146)
[2017-02-03] MEDS: Pantoprazole 40 MG Tab.CR PO SCH (06:36)
[2017-02-03] MEDS: oxyCODONE 5 MG Tab PO PRN (06:36)
[2017-02-03] MEDS: Pregabalin 200 MG Cap PO SCH (06:36)
[2017-02-03 08:46] VITALS: BP 113/74
[2017-02-03] MEDS: Cyclobenzaprine 10 MG Tab PO SCH (08:51)
[2017-02-03] MEDS: amLODIPine 5 MG Tab PO SCH (08:52)
[2017-02-03] MEDS: Polyethylene Glycol 3350 Powder 17 GM Packet PO SCH (08:52)
[2017-02-03] MEDS: Enoxaparin 40 MG/0.4 ML Syringe SUBCUT SCH (08:52)
[2017-02-03] MEDS: Docusate Sodium 100 MG Cap PO SCH (08:52)
[2017-02-03] MEDS: Nicotine 14 MG/24 Hr Patch TRDERM SCH (08:53)
--- NOTE | 2017-02-03 09:35 | PCM.DCSUM1 ---
Discharge Summary - Discharge Data Discharge Date: 02/03/17 Discharge Disposition: Home, Self-Care 01 Condition: Good - Patient Summary/Data Consults: Consultations 02/01/17 11:24 Consult to Physical Therapy [PT Evaluation and Treatment] [CONS] Routine Hospital Course: Admission diagnosis left foot cellulitis. This 51 year old female with pmh of RA, HTN, and severe bunions to bilateral feet presented to the ED who was admitted for left foot cellulitis that had failed outpatient management. As outpatient she had been on Keflex and Bactrim without improvement. She was admitted and treated with IV vancomycin. Wound cultures from [facility] grew out MRSA and group B strep. She had improvement in her erythema and edema of her left foot. She was discharged home on Clindamycin 300mg q6hrs for seven days. - Discharge Plan Prescriptions/Med Rec: Clindamycin HCl [Cleocin HCl] 300 mg PO Q6H #30 capsule oxyCODONE 5 mg PO Q6H PRN #10 tablet PRN Reason: Pain Home Medications: Home Meds Celecoxib [CeleBREX] 200 mg PO DAILY 07/22/16 [History] Cyclobenzaprine [Flexeril] 20 mg PO BID 07/22/16 [History] Omeprazole 20 mg PO TID 07/22/16 [History] Pregabalin [Lyrica] 200 mg PO TID 07/22/16 [History] amLODIPine [Norvasc] 5 mg PO DAILY 07/22/16 [History] Clindamycin HCl [Cleocin HCl] 300 mg PO Q6H #30 capsule 02/03/17 [Rx] oxyCODONE 5 mg PO Q6H PRN #10 tablet 02/03/17 [Rx] Patient Handouts: Oxycodone tablets or capsules, Clindamycin capsules, Cellulitis, Adult, [id number] Referrals: Elizabeth Rogel NP [Primary Care Provider] - 02/09/17 1:00 pm - Patient Data Vitals - Most Recent: Last Vital Signs Temp 36.3 C 02/03/17 08:00 Pulse 77 02/03/17 08:00 Resp 12 02/03/17 08:00 BP 113/74 02/03/17 08:52 Pulse Ox 93 L 02/03/17 08:00 Weight - Most Recent: 86.3 kg I&O - Last 24 hours: Intake & Output 02/02/17 02/03/17 02/03/17 22:59 06:59 14:59 Intake Total 1340 1655 Output Total 0062 1900 Balance 40 -245 Lab Results - Last 24 hrs: Laboratory Results - last 24 hr 02/03/17 02/03/17 Range/Units 05:08 05:08 WBC 5.08 (4.0-11.0) K/uL RBC 3.99 L (4.30-5.90) M/uL Hgb 12.5 (12.0-16.0) g/dL Hct 38.4 (36.0-46.0) % MCV 96.2 (80.0-98.0) fL MCH 31.3 (27.0-32.0) pg MCHC 32.6 (31.0-37.0) g/dL RDW Std Deviation 49.2 (28.0-62.0) fl RDW Coeff of Fouzia 14 (11.0-15.0) % Plt Count 209 (150-400) K/uL MPV 10.00 (7.40-12.00) fL Neut % (Auto) 47.0 L (48.0-80.0) % Lymph % (Auto) 39.8 (16.0-40.0) % [place] % (Auto) 9.3 (0.0-15.0) % Eos % (Auto) 3.1 (0.0-7.0) % Baso % (Auto) 0.8 (0.0-1.5) % Neut # (Auto) 2.4 (1.4-5.7) K/uL Lymph # (Auto) 2.0 (0.6-2.4) K/uL [place] # (Auto) 0.5 (0.0-0.8) K/uL Eos # (Auto) 0.2 (0.0-0.7) K/uL Baso # (Auto) 0.0 (0.0-0.1) K/uL Nucleated RBC % 0.0 /100WBC Nucleated RBCs # 0 K/uL Sodium 139 (136-146) mmol/L Potassium 3.9 (3.5-5.1) mmol/L Chloride 106 (98-110) mmol/L Carbon Dioxide 24 (21-31) mmol/L BUN 16 (6.0-23.0) mg/dL Creatinine 0.8 (0.6-1.5) mg/dL Est Cr Clr Drug Dosing 79.08 mL/min Estimated GFR (MDRD) > 60.0 ml/min Glucose 102 (60-110) mg/dL Calcium 9.3 (8.8-10.8) mg/dL Med Orders - Current: Current Medications Acetaminophen (Tylenol) 650 mg PO Q4H PRN PRN Reason: Pain Last Admin: 02/01/17 16:27 Dose: 650 mg Amlodipine Besylate (Norvasc) 5 mg PO DAILY [facility] Last Admin: 02/03/17 08:52 Dose: 5 mg Bisacodyl (Dulcolax) 5 mg PO DAILY PRN PRN Reason: Constipation Last Admin: 02/01/17 16:28 Dose: 5 mg Cyclobenzaprine HCl (Flexeril) 20 mg PO BID [facility] Last Admin: 02/03/17 08:51 Dose: 20 mg Docusate Sodium (Colace) 100 mg PO DAILY [facility] Last Admin: 02/03/17 08:52 Dose: 100 mg Enoxaparin Sodium (Lovenox) 40 mg SUBCUT DAILY [facility] Last Admin: 02/03/17 08:52 Dose: 40 mg Vancomycin HCl 1,250 mg/ (Sodium Chloride) 250 mls @ 250 mls/hr IV Q12H [facility] Last Admin: 02/03/17 00:16 Dose: 250 mls/hr Morphine Sulfate (Morphine) 3 mg IVPUSH Q4H PRN PRN Reason: Pain Last Admin: 02/03/17 05:09 Dose: 3 mg Nicotine (Habitrol) 14 mg TRDERM DAILY [facility] Last Admin: 02/03/17 08:53 Dose: 14 mg Ondansetron HCl (Zofran) 4 mg IVPUSH Q4H PRN PRN Reason: Nausea Oxycodone HCl (Oxycodone) 5 - 10 mg PO Q4H PRN PRN Reason: Pain (moderate 4-6) Last Admin: 02/03/17 06:36 Dose: 10 mg Pantoprazole Sodium (Protonix) 40 mg PO BIDAC [facility] Last Admin: 02/03/17 06:36 Dose: 40 mg Polyethylene Glycol (Miralax) 17 gm PO DAILY [facility] Last Admin: 02/03/17 08:52 Dose: 17 gm Pregabalin (Lyrica) 200 mg PO TID [facility] Last Admin: 02/03/17 06:36 Dose: 200 mg Vancomycin HCl (Pharmacy To Dose - Vancomycin) 1 dose .XX ASDIRECTED [facility] Discontinued Medications Gadobenate Dimeglumine (Multihance) 20 ml IVPUSH ONETIME STA Stop: 01/31/17 19:37 Last Admin: 01/31/17 19:37 Dose: 16 ml Sodium Chloride (Normal Saline) 1,000 mls @ 125 mls/hr IV STAT [facility] Last Admin: 01/31/17 12:38 Dose: 125 mls/hr Vancomycin HCl 1 gm/ Sodium (Chloride) 250 mls @ 250 mls/hr IV ONETIME ONE Stop: 01/31/17 13:10 Last Admin: 01/31/17 12:39 Dose: 250 mls/hr Vancomycin HCl 1,500 mg/ (Sodium Chloride) 500 mls @ 333.333 mls/hr IV Q12H [facility] Vancomycin HCl 1,250 mg/ (Sodium Chloride) 250 mls @ 250 mls/hr IV Q12H [facility] Morphine Sulfate (Morphine) 3 mg IVPUSH ONETIME ONE Stop: 02/01/17 12:12 Last Admin: 02/01/17 12:56 Dose: 3 mg Omeprazole (Omeprazole) 20 mg PO TID [facility] Last Admin: 01/31/17 14:24 Dose: 20 mg Oxycodone HCl (Oxycodone) 5 mg PO Q4H PRN PRN Reason: Pain (moderate 4-6) Last Admin: 01/31/17 14:23 Dose: 5 mg *Q Meaningful Use (DIS) - VTE *Q VTE Criteria *Q: - Stroke *Q Stroke Criteria *Q: - AMI *Q AMI Criteria *Q:
== END 2017-02-03 10:13 | disposition home or self-care (01) | DRG 383 ==
LOC: MW.ED 11:52 → MW.MS 13:31
PROVIDERS: ADMIT Internal Medicine; ATTEND Internal Medicine
DX: L03.116 Cellulitis of left lower limb (principal); M06.9 Rheumatoid arthritis, unspecified; M79.7 Fibromyalgia; M20.12 Hallux valgus (acquired), left foot; M20.11 Hallux valgus (acquired), right foot; I10 Essential (primary) hypertension; Z72.0 Tobacco use; Z91.040 Latex allergy status; Z88.8 Allergy status to other drugs, medicaments and biological substances; Z79.899 Other long term (current) drug therapy
CPT/HCPCS: 36415; 73620-26-LT; 73620-LT; 73719-26-LT; 73719-LT; 80048; 80053; 80202; 81001; 85025; 85652; 87040; 96365; 97161-GP; 99285; 99285-25; A9270-GY; A9577; J1650; J2270; J3370; J7040; J7050

== ENCOUNTER 2019-01-22 10:50 | Observation (INO) | payer BC ==
[2019-01-22] MEDS ORDERED: Sodium Chloride 0.9% 2.5 ML Syringe FLUSH PRN (10:53)
[2019-01-22] MEDS ORDERED: Aspirin 81 MG Tab.Chew PO ONE (10:53)
[2019-01-22] MEDS ORDERED: Sodium Chloride 0.9% 10 ML Syringe FLUSH PRN (10:53)
--- NOTE | 2019-01-22 10:56 | EDM.PDOC ---
ED HPI GENERAL MEDICAL PROBLEM - General Chief Complaint: Chest Pain Stated Complaint: chest pain Time Seen by Provider: 01/22/19 10:55 Source of Information: Reports: Patient History Limitations: Reports: No Limitations - History of Present Illness INITIAL COMMENTS - FREE TEXT/NARRATIVE: HISTORY AND PHYSICAL: History of present illness: Patient is a 53-year-old female who presents to the emergency room with complaints of midsternal chest pain that started last evening. She states that she was able to get comfortable enough to fall asleep. When she woke up to get ready for work she noticed that the pain was still there. Did notice that the pain was aggravated while having to turn her steering well. Describes it as a "constant pressure" to her mid sternum and across her chest. This pain does not radiate into her neck, jaw or shoulders. Denies any other associated symptoms. Does have a past medical history of hypertension and endocarditis in 2008. No significant family history of heart disease. He is a pack per day smoker over the past 30+ years. Patient denies any fever, chills, headache, change in vision, syncope or near syncope. Denies any back pain, shortness of breath or cough. Denies any abdominal pain, nausea, vomiting, diarrhea, constipation or dysuria. Has not noted any blood in urine or stool. Patient has been eating and drinking appropriately. Patient does have a past medical history fibromyalgia and hypertension. Review of systems: As per history of present illness and below otherwise all systems reviewed and negative. Past medical history: As per history of present illness and as reviewed below otherwise noncontributory. Surgical history: As per history of present illness and as reviewed below otherwise noncontributory. Social history: See social history for further information Family history: As per history of present illness and as reviewed below otherwise noncontributory. Physical exam: General: Well-developed and well-nourished 53-year-old female. Alert and oriented. Nontoxic appearing and in no acute distress. Vital signs are stable and have been reviewed by me. HEENT: Atraumatic, normocephalic, pupils equal and reactive bilaterally, negative for conjunctival pallor or scleral icterus, mucous membranes moist, TMs normal bilaterally, throat clear, neck supple, nontender, trachea midline. No drooling or trismus noted. No meningeal signs. No hot potato voice noted. Lungs: Clear to auscultation, breath sounds equal bilaterally, chest nontender. Not reproducible. Heart: S1S2, regular rate and rhythm without overt murmur Abdomen: Soft, nondistended, nontender. Negative for masses or hepatosplenomegaly. Negative for costovertebral tenderness. Pelvis: Stable nontender. Skin: Intact, warm, dry. No lesions or rashes noted. Extremities: Atraumatic, moves all extremities per self without difficulty or deficits. Neurovascular unremarkable. Neuro: Awake, alert, oriented. Cranial nerves II through XII unremarkable. Cerebellum unremarkable. Motor and sensory unremarkable throughout. Exam nonfocal. Notes: Lab work is unremarkable. No significant findings on EKG. patient states her pain has resolved. States occasionally she can feel pressure does not describe this as painful. Her vital signs remain stable. We discussed admission, she would like that as she states she does not feel comfortable eating home by herself. Dr. Hurtado was consulted on this case and is agreeable for further evaluation and management. Patient will be placed on telemetry. Diagnostics: CBC, CMP, Troponin, EKG, CXR, UA Therapeutics: Saline Lock, ASA, morphine Impression: Chest pain rule out ID Plan: Observation admission with telemetry. Definitive disposition and diagnosis as appropriate pending reevaluation and review of above. Chest Pain Score (Numeric/FACES): 10 - Related Data Allergies Allergy/AdvReac Type Severity Reaction Status Date / Time erythromycin base Allergy Hives Verified 01/22/19 10:54 latex Allergy Rash Verified 01/22/19 10:54 Clear Medical Tape Allergy Rash Uncoded 01/22/19 10:54 Home Meds: Home Meds Celecoxib [CeleBREX] 200 mg PO DAILY 07/22/16 [History] Cyclobenzaprine [Flexeril] 20 mg PO BID 07/22/16 [History] Omeprazole 20 mg PO TID 07/22/16 [History] Pregabalin [Lyrica] 200 mg PO TID 07/22/16 [History] amLODIPine [Norvasc] 5 mg PO DAILY 07/22/16 [History] Past Medical History HEENT History: Reports: None Cardiovascular History: Reports: Hypertension, Other (See Below) (pericardial effusion, which was drained approx 2008.). Denies: Afib, Blood Clots/VTE/DVT, ID Respiratory History: Reports: None. Denies: COPD, SOB Gastrointestinal History: Reports: GERD. Denies: GI Bleed Genitourinary History: Reports: None. 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 Musculoskeletal History: Reports: Fibromyalgia, RA Neurological History: Reports: None Psychiatric History: Reports: None Endocrine/Metabolic History: Reports: None Hematologic History: Reports: None Immunologic History: Reports: None Oncologic (Cancer) History: Reports: None Dermatologic History: Reports: None - Infectious Disease History Infectious Disease History: Reports: Chicken Pox - Past Surgical History Neurological Surgical History: Reports: Other (See Below) Musculoskeletal Surgical History: Reports: Other (See Below) Social & Family History - Family History Family Medical History: Noncontributory - Caffeine Use Caffeine Use: Reports: Coffee, Soda - Living Situation & Occupation Living situation: Reports: Occupation: Employed ED ROS GENERAL - Review of Systems Review Of Systems: ROS reveals no pertinent complaints other than HPI. ED EXAM, GENERAL - Physical Exam Exam: See Below (See dictation) Course - Vital Signs Last Recorded V/S: Last Vital Signs Temp 98.0 F 01/22/19 10:51 Pulse 87 01/22/19 11:28 Resp 13 01/22/19 11:28 BP 147/84 H 01/22/19 11:28 Pulse Ox 95 01/22/19 11:28 - Orders/Labs/Meds Orders: Active Orders 24 hr Category Date Time Status Admission Status [Patient Status] [ADT] Stat ADT 01/22/19 12:00 Ordered EKG Documentation Completion [RC] STAT Care 01/22/19 10:53 Active UA RFX CHILO AND CULT IF INDIC [URIN] Stat Lab 01/22/19 10:53 Ordered Sodium Chloride 0.9% [Saline Flush] Med 01/22/19 10:53 Active 10 ml FLUSH ASDIRECTED PRN Sodium Chloride 0.9% [Saline Flush] Med 01/22/19 10:53 Active 2.5 ml FLUSH ASDIRECTED PRN Saline Lock Insert [OM.PC] Stat Oth 01/22/19 10:53 Ordered Medication Orders Sodium Chloride (Saline Flush) 10 ml FLUSH ASDIRECTED PRN PRN Reason: Keep Vein Open Last Admin: 01/22/19 11:28 Dose: 10 ml Sodium Chloride (Saline Flush) 2.5 ml FLUSH ASDIRECTED PRN PRN Reason: Keep Vein Open Last Admin: 01/22/19 11:28 Dose: 2.5 ml Labs: Laboratory Tests 01/22/19 01/22/19 Range/Units 10:55 10:55 WBC 8.87 (4.0-11.0) K/uL RBC 4.46 (4.30-5.90) M/uL Hgb 14.4 (12.0-16.0) g/dL Hct 41.7 (36.0-46.0) % MCV 93.5 (80.0-98.0) fL MCH 32.3 H (27.0-32.0) pg MCHC 34.5 (31.0-37.0) g/dL RDW Std Deviation 47.5 (28.0-62.0) fl RDW Coeff of Fouzia 14 (11.0-15.0) % Plt Count 214 (150-400) K/uL MPV 10.00 (7.40-12.00) fL Neut % (Auto) 57.6 (48.0-80.0) % Lymph % (Auto) 31.9 (16.0-40.0) % [place] % (Auto) 8.3 (0.0-15.0) % Eos % (Auto) 1.7 (0.0-7.0) % Baso % (Auto) 0.5 (0.0-1.5) % Neut # (Auto) 5.1 (1.4-5.7) K/uL Lymph # (Auto) 2.8 H (0.6-2.4) K/uL [place] # (Auto) 0.7 (0.0-0.8) K/uL Eos # (Auto) 0.2 (0.0-0.7) K/uL Baso # (Auto) 0.0 (0.0-0.1) K/uL Nucleated RBC % 0.0 /100WBC Nucleated RBCs # 0 K/uL Sodium 138 (136-145) mmol/L Potassium 4.1 (3.5-5.1) mmol/L Chloride 103 (98-107) mmol/L Carbon Dioxide 23.5 (21.0-32.0) mmol/L BUN 13 (7.0-18.0) mg/dL Creatinine 0.8 (0.6-1.0) mg/dL Est Cr Clr Drug Dosing 77.27 mL/min Estimated GFR (MDRD) > 60.0 ml/min Glucose 123 H (74-106) mg/dL Calcium 9.0 (8.5-10.1) mg/dL Total Bilirubin 0.4 (0.2-1.0) mg/dL AST 37 (15-37) IU/L ALT 61 (14-63) IU/L Alkaline Phosphatase 90 (46-116) U/L Troponin I < 0.050 (0.000-0.056) ng/mL Total Protein 7.8 (6.4-8.2) g/dL Albumin 3.9 (3.4-5.0) g/dL Globulin 3.9 (2.6-4.0) g/dL Albumin/Globulin Ratio 1.0 (0.9-1.6) Meds: Medications Generic Name Dose Route Start Last Admin Trade Name Freq PRN Reason Stop Dose Admin Sodium Chloride 10 ml 01/22/19 10:53 01/22/19 11:28 Saline Flush FLUSH 10 ml ASDIRECTED PRN Administration Keep Vein Open Sodium Chloride 2.5 ml 01/22/19 10:53 01/22/19 11:28 Saline Flush FLUSH 2.5 ml ASDIRECTED PRN Administration Keep Vein Open Discontinued Medications Generic Name Dose Route Start Last Admin Trade Name Soraya PRN Reason Stop Dose Admin Aspirin 324 mg 01/22/19 10:53 01/22/19 11:28 Aspirin PO 01/22/19 10:54 324 mg ONETIME ONE Administration Morphine Sulfate 2 mg 01/22/19 11:27 01/22/19 11:33 Morphine IVPUSH 01/22/19 11:28 2 mg ONETIME ONE Administration Departure - Departure Time of Disposition: 12:07 Disposition: Refer to Observation Clinical Impression: Chest pain, rule out acute myocardial infarction Referrals: PCP,None [Primary Care Provider] - Forms: ED Department Discharge - My Orders Last 24 Hours: My Active Orders 01/22/19 10:53 EKG Documentation Completion [RC] STAT UA RFX CHILO AND CULT IF INDIC [URIN] Stat Sodium Chloride 0.9% [Saline Flush] 10 ml FLUSH ASDIRECTED PRN Sodium Chloride 0.9% [Saline Flush] 2.5 ml FLUSH ASDIRECTED PRN Saline Lock Insert [OM.PC] Stat 01/22/19 12:00 Admission Status [Patient Status] [ADT] Stat - Assessment/Plan Last 24 Hours: My Active Orders 01/22/19 10:53 EKG Documentation Completion [RC] STAT UA RFX CHILO AND CULT IF INDIC [URIN] Stat Sodium Chloride 0.9% [Saline Flush] 10 ml FLUSH ASDIRECTED PRN Sodium Chloride 0.9% [Saline Flush] 2.5 ml FLUSH ASDIRECTED PRN Saline Lock Insert [OM.PC] Stat 01/22/19 12:00 Admission Status [Patient Status] [ADT] Stat
[2019-01-22] MEDS ORDERED: Morphine 2 MG/ML Syringe IVPUSH ONE (11:27)
[2019-01-22 11:46] LABS: CHLORIDE,CL 103 mmol/L (98-107); SODIUM,NA 138 mmol/L (136-145)
--- NOTE | 2019-01-22 12:02 | CR ---
EXAMINATION: Portable chest radiograph. HISTORY: Chest pain. FINDINGS: The trachea is midline. The cardiomediastinal silhouette is within normal limits. No pulmonary infiltrates, effusions or pneumothorax. Osseous structures appear unremarkable. IMPRESSION: No acute cardiopulmonary process.
[2019-01-22] MEDS: Morphine 2 MG/ML Syringe IVPUSH PRN ×3 (15:20→23:19)
--- NOTE | 2019-01-22 15:52 | PCM.HP ---
H&P History of Present Illness - General Date of Service: 01/22/19 Admit Problem/Dx: Admission Diagnosis/Problem Admission Diagnosis/Problem Chest pain, rule out acute myocardial infarction - History of Present Illness Initial Comments - Free Text/Narative: 53 yo female with pmh of RA, and hypertension who presents with a one day history of chest pain. The pain is on the chest wall and started when she woke up this morning. Moving her arm makes the pain worse. She had similar pain a week ago that occured when she had cold and was coughing. She denies any current cough, fevers, shortness of breath or lightheadedness. Chest Pain Score (Numeric/FACES): 8 - Related Data Allergies/Adverse Reactions: Allergies Allergy/AdvReac Type Severity Reaction Status Date / Time erythromycin base Allergy Hives Verified 01/22/19 16:26 latex Allergy Rash Verified 01/22/19 16:26 Clear Medical Tape Allergy Rash Uncoded 01/22/19 16:26 Home Medications: Home Meds Celecoxib [CeleBREX] 200 mg PO DAILY 07/22/16 [History] Cyclobenzaprine [Flexeril] 2 tab PO BEDTIME 07/22/16 [History] Omeprazole 20 mg PO TID 07/22/16 [History] Pregabalin [Lyrica] 200 mg PO TID 07/22/16 [History] amLODIPine [Norvasc] 5 mg PO BEDTIME 07/22/16 [History] Past Medical History HEENT History: Reports: None, Other (See Below) Other HEENT History: wears contacts Cardiovascular History: Reports: Hypertension, Other (See Below) Other Cardiovascular History: pericarditis 2009 Respiratory History: Reports: None Gastrointestinal History: Reports: GERD Genitourinary History: Reports: None 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 Musculoskeletal History: Reports: Fibromyalgia, Osteoarthritis, RA Neurological History: Reports: None Psychiatric History: Reports: None Endocrine/Metabolic History: Reports: None Hematologic History: Reports: None Immunologic History: Reports: None Oncologic (Cancer) History: Reports: None Dermatologic History: Reports: None Other Dermatologic History: Raynaud's Syndrome - Infectious Disease History Infectious Disease History: Reports: Chicken Pox - Past Surgical History Head Surgeries/Procedures: Reports: None Cardiovascular Surgical History: Reports: None Female Surgical History: Reports: Hysterectomy, Other (See Below) Other Female Surgeries/Procedures: has left ovary Neurological Surgical History: Reports: Other (See Below) Other Neurological Surgeries/Procedures: Raynaud's Syndrome Musculoskeletal Surgical History: Reports: Other (See Below) Dermatological Surgical History: Reports: None Social & Family History - Family History Family Medical History: Noncontributory - Tobacco Use Smoking Status *Q: Current Every Day Smoker Years of Tobacco use: 38 Packs/Tins Daily: 1 Used Tobacco, but Quit: No Second Hand Smoke Exposure: Yes - Caffeine Use Caffeine Use: Reports: Coffee - Alcohol Use Days Per Week of Alcohol Use: 2 Number of Drinks Per Day: 5 Total Drinks Per Week: 10 Date of Last Drink: 01/20/19 Time of Last Drink: 20:00 - Recreational Drug Use Recreational Drug Use: No - Living Situation & Occupation Living situation: Reports: Occupation: Employed H&P Review of Systems - Review of Systems: Review Of Systems: ROS reveals no pertinent complaints other than HPI. Exam - Exam Exam: See Below - Vital Signs Vital Signs: Last Vital Signs Temp 36.4 C 01/22/19 15:46 Pulse 75 01/22/19 15:46 Resp 18 01/22/19 15:46 BP 119/86 01/22/19 15:46 Pulse Ox 96 01/22/19 15:46 Weight: 87.498 kg - Exam General: Alert, Oriented HEENT: Mucosa Moist & Boring Neck: Supple, Trachea Midline Lungs: Clear to Auscultation, Normal Respiratory Effort Cardiovascular: Regular Rate, Regular Rhythm GI/Abdominal Exam: Soft, Non-Tender Extremities: Non-Tender, No Pedal Edema Skin: Warm, Dry, Intact Neurological: Cranial Nerves Intact - Patient Data Lab Results Last 24 hrs: Laboratory Results - last 24 hr 01/22/19 01/22/19 01/22/19 Range/Units 10:55 10:55 12:10 WBC 8.87 (4.0-11.0) K/uL RBC 4.46 (4.30-5.90) M/uL Hgb 14.4 (12.0-16.0) g/dL Hct 41.7 (36.0-46.0) % MCV 93.5 (80.0-98.0) fL MCH 32.3 H (27.0-32.0) pg MCHC 34.5 (31.0-37.0) g/dL RDW Std Deviation 47.5 (28.0-62.0) fl RDW Coeff of Fouzia 14 (11.0-15.0) % Plt Count 214 (150-400) K/uL MPV 10.00 (7.40-12.00) fL Neut % (Auto) 57.6 (48.0-80.0) % Lymph % (Auto) 31.9 (16.0-40.0) % [place] % (Auto) 8.3 (0.0-15.0) % Eos % (Auto) 1.7 (0.0-7.0) % Baso % (Auto) 0.5 (0.0-1.5) % Neut # (Auto) 5.1 (1.4-5.7) K/uL Lymph # (Auto) 2.8 H (0.6-2.4) K/uL [place] # (Auto) 0.7 (0.0-0.8) K/uL Eos # (Auto) 0.2 (0.0-0.7) K/uL Baso # (Auto) 0.0 (0.0-0.1) K/uL Nucleated RBC % 0.0 /100WBC Nucleated RBCs # 0 K/uL Sodium 138 (136-145) mmol/L Potassium 4.1 (3.5-5.1) mmol/L Chloride 103 (98-107) mmol/L Carbon Dioxide 23.5 (21.0-32.0) mmol/L BUN 13 (7.0-18.0) mg/dL Creatinine 0.8 (0.6-1.0) mg/dL Est Cr Clr Drug Dosing 77.27 mL/min Estimated GFR (MDRD) > 60.0 ml/min Glucose 123 H (74-106) mg/dL Calcium 9.0 (8.5-10.1) mg/dL Total Bilirubin 0.4 (0.2-1.0) mg/dL AST 37 (15-37) IU/L ALT 61 (14-63) IU/L Alkaline Phosphatase 90 (46-116) U/L Troponin I < 0.050 (0.000-0.056) ng/mL Total Protein 7.8 (6.4-8.2) g/dL Albumin 3.9 (3.4-5.0) g/dL Globulin 3.9 (2.6-4.0) g/dL Albumin/Globulin Ratio 1.0 (0.9-1.6) Urine Color YELLOW Urine Appearance SLT CLOUDY Urine pH 5.5 (5.0-8.0) Ur Specific [place] <= 1.005 (1.001-1.035) Urine Protein NEGATIVE (NEGATIVE) mg/dL Urine Glucose (UA) NEGATIVE (NEGATIVE) mg/dL Urine Ketones NEGATIVE (NEGATIVE) mg/dL Urine Occult Blood TRACE-INTACT H (NEGATIVE) Urine Nitrite NEGATIVE (NEGATIVE) Urine Bilirubin NEGATIVE (NEGATIVE) Urine Urobilinogen 0.2 (<2.0) EU/dL Ur Leukocyte Esterase SMALL H (NEGATIVE) Urine RBC 0-1 (0-2/HPF) Urine WBC 1-3 (0-5/HPF) Ur Epithelial Cells FEW (NONE-FEW) Urine Bacteria RARE (NEGATIVE) Urine Mucus LIGHT (NONE-MOD) Result Diagrams: 01/22/19 10:55 01/22/19 10:55 Problem List Initiated/Reviewed/Updated: Yes Orders Last 24hrs: Active Orders 24 hr Category Date Time Status Admission Status [Patient Status] [ADT] Stat ADT 01/22/19 12:00 Active Regular Diet [DIET] Diet 01/22/19 Breakfast Ordered CULTURE URINE [RM] Stat Lab 01/22/19 12:10 Received Cyclobenzaprine [Flexeril] Med 01/22/19 21:00 Ordered 20 mg PO BID Morphine Med 01/22/19 14:47 Ordered 2 mg IVPUSH Q3H PRN Omeprazole [Omeprazole] Med 01/22/19 22:00 Ordered 20 mg PO TID Pregabalin [Lyrica] Med 01/22/19 22:00 Ordered 200 mg PO TID Sodium Chloride 0.9% [Saline Flush] Med 01/22/19 10:53 Active 10 ml FLUSH ASDIRECTED PRN Sodium Chloride 0.9% [Saline Flush] Med 01/22/19 10:53 Active 2.5 ml FLUSH ASDIRECTED PRN amLODIPine [Norvasc] Med 01/23/19 09:00 Ordered 5 mg PO DAILY Saline Lock Insert [OM.PC] Stat Oth 01/22/19 10:53 Ordered Medication Orders Amlodipine Besylate (Norvasc) 5 mg PO DAILY GLENDA Cyclobenzaprine HCl (Flexeril) 10 mg PO BID LGENDA Morphine Sulfate (Morphine) 2 mg IVPUSH Q3H PRN PRN Reason: Pain Last Admin: 01/22/19 15:20 Dose: 2 mg Non-Formulary Medication (Omeprazole [Omeprazole]) 20 mg PO BIDAC GLENDA Pregabalin (Lyrica) 200 mg PO TID GLENDA Sodium Chloride (Saline Flush) 10 ml FLUSH ASDIRECTED PRN PRN Reason: Keep Vein Open Last Admin: 01/22/19 11:28 Dose: 10 ml Sodium Chloride (Saline Flush) 2.5 ml FLUSH ASDIRECTED PRN PRN Reason: Keep Vein Open Last Admin: 01/22/19 11:28 Dose: 2.5 ml Assessment/Plan Comment:: 53 yo female admitted for chest pain. She ruled out for acute coronary syndrome with serial negative cardiac enzymes. I suspect pain is musculoskeletal in nature. She was discharged home. 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
[2019-01-22] MEDS ORDERED: Non-Formulary Medication 1 Each (Omeprazole [Omeprazole] 20 MG) PO SCH (17:00)
[2019-01-22] MEDS: Omeprazole 20 MG Cap.CR PO SCH (17:16)
[2019-01-22] MEDS: Pregabalin 200 MG Cap PO SCH (21:38)
[2019-01-22] MEDS: Cyclobenzaprine 10 MG Tab PO SCH (21:38)
[2019-01-23] MEDS: Morphine 2 MG/ML Syringe IVPUSH PRN (03:48)
[2019-01-23] MEDS: Pregabalin 200 MG Cap PO SCH (06:45)
[2019-01-23] MEDS: Omeprazole 20 MG Cap.CR PO SCH (06:45)
[2019-01-23] MEDS: Cyclobenzaprine 10 MG Tab PO SCH (08:34)
[2019-01-23] MEDS ORDERED: amLODIPine 5 MG Tab PO SCH (09:00)
[2019-01-23] MEDS ORDERED: Acetaminophen 500 MG Tab PO PRN (10:06)
[2019-01-23 12:34] VITALS: BP 115/83
== END 2019-01-23 13:25 | disposition home or self-care (01) ==
LOC: MW.ED 10:50 → MW.MS 13:09
PROVIDERS: ADMIT Internal Medicine; ATTEND Internal Medicine
DX: R07.2 Precordial pain (principal); I10 Essential (primary) hypertension; F17.200 Nicotine dependence, unspecified, uncomplicated; M06.9 Rheumatoid arthritis, unspecified; Z88.1 Allergy status to other antibiotic agents; Z91.040 Latex allergy status; Z91.048 Other nonmedicinal substance allergy status; Z79.1 Long term (current) use of non-steroidal anti-inflammatories (NSAID); Z79.899 Other long term (current) drug therapy
CPT/HCPCS: 71045; 80053; 81001; 84484; 85025; 87086; 93005; 96374; 99285; A9270; G0378; J2270

== ENCOUNTER 2019-03-27 17:53 | Observation (INO) | payer BC ==
[2019-03-27] MEDS ORDERED: Sodium Chloride 0.9% 2.5 ML Syringe FLUSH PRN (17:57)
[2019-03-27] MEDS ORDERED: Aspirin 81 MG Tab.Chew PO ONE (17:57)
[2019-03-27] MEDS ORDERED: Sodium Chloride 0.9% 10 ML Syringe FLUSH PRN (17:57)
[2019-03-27] MEDS ORDERED: Sodium Chloride 0.9% 1,000 ML IV ONE (17:58)
[2019-03-27] MEDS ORDERED: Nitroglycerin 0.4 MG Tab.SL SL PRN (17:58)
--- NOTE | 2019-03-27 17:58 | EDM.PDOC ---
ED HPI GENERAL MEDICAL PROBLEM - General Chief Complaint: Chest Pain Stated Complaint: PT HAS CHEST PAINS Time Seen by Provider: 03/27/19 17:56 Source of Information: Reports: Patient History Limitations: Reports: No Limitations - History of Present Illness INITIAL COMMENTS - FREE TEXT/NARRATIVE: HISTORY AND PHYSICAL: History of present illness: Patient is a 54-year-old female who presents to the emergency room today with complaints of midsternal chest pain that wraps across her anterior chest. She states this occurred a few minutes prior to arrival. She states that the pain started when getting into her vehicle. Nothing appears to aggravate or alleviate her chest pain. She describes it as a heavy pressure. Patient denies any fever, chills, headache, change in vision, syncope or near syncope. Denies any chest pain, back pain, shortness of breath or cough. Denies any abdominal pain, nausea, vomiting, diarrhea, constipation or dysuria. Has not noted any blood in urine or stool. Patient has been eating and drinking appropriately. Past medical history of hypertension, pericarditis (2008), GERD, fibromyalgia and rheumatoid arthritis. She does drink alcohol on a daily basis. Denies any drug abuse. Review of systems: As per history of present illness and below otherwise all systems reviewed and negative. Past medical history: As per history of present illness and as reviewed below otherwise noncontributory. Surgical history: As per history of present illness and as reviewed below otherwise noncontributory. Social history: See social history for further information Family history: As per history of present illness and as reviewed below otherwise noncontributory. Physical exam: General: Well-developed and well-nourished 54 year old female. Alert and oriented. Nontoxic appearing and in no acute distress. HEENT: Atraumatic, normocephalic, pupils equal and reactive bilaterally, negative for conjunctival pallor or scleral icterus, cheeks are flushed bilaterally, mucous membranes moist, TMs normal bilaterally, throat clear, neck supple, nontender, trachea midline. No drooling or trismus noted. No meningeal signs. No hot potato voice noted. Lungs: Clear to auscultation, breath sounds equal bilaterally, chest nontender. Heart: S1S2, regular rate and rhythm without overt murmur Abdomen: Soft, nondistended, nontender. Negative for masses or hepatosplenomegaly. Negative for costovertebral tenderness. Pelvis: Stable nontender. Skin: Intact, warm, dry. No lesions or rashes noted. Extremities: Atraumatic, moves all extremities per self without difficulty or deficits, negative for cords or calf pain. Neurovascular unremarkable. Neuro: Awake, alert, oriented. Cranial nerves II through XII unremarkable. Cerebellum unremarkable. Motor and sensory unremarkable throughout. Exam nonfocal. Notes: Upon nurses entering the room; patient states she is pain free. Nitro on HOLD at this time. VSS. Chest x-ray shows no acute findings. Labs are unremarkable. Pain free at this time. All findings were shared with the patient. She states she is at home alone and would not feel comfortable being discharged. I agree that she should stay for observation. Dr. Hurtado was consult did on this case. She will be admitted with telemetry to [facility] Diagnostics: CBC, CMP, TSH, INR, troponin, EKG, one view chest Therapeutics: Aspirin, nitroglycerin, NS at 150 mils per hour Impression: Chest pain rule out Plan: Observation admission with telemetry Definitive disposition and diagnosis as appropriate pending reevaluation and review of above. Mid-Sternal Chest Pain Score (Numeric/FACES): 7 - Related Data Allergies Allergy/AdvReac Type Severity Reaction Status Date / Time erythromycin base Allergy Hives Verified 03/27/19 18:12 latex Allergy Rash Verified 03/27/19 18:12 Clear Medical Tape Allergy Rash Uncoded 01/22/19 16:26 Home Meds: Home Meds Celecoxib [CeleBREX] 200 mg PO DAILY 07/22/16 [History] Cyclobenzaprine [Flexeril] 2 tab PO BID 07/22/16 [History] Omeprazole 20 mg PO BID 07/22/16 [History] Pregabalin [Lyrica] 200 mg PO TID 07/22/16 [History] amLODIPine [Norvasc] 5 mg PO BEDTIME 07/22/16 [History] cycloSPORINE [Restasis Multidose] 03/27/19 [History] Past Medical History HEENT History: Reports: None, Other (See Below) Other HEENT History: wears contacts Cardiovascular History: Reports: Hypertension, Other (See Below) Other Cardiovascular History: pericarditis 2008 Respiratory History: Reports: None Gastrointestinal History: Reports: GERD Genitourinary History: Reports: None [employer] History: Reports: None Musculoskeletal History: Reports: Fibromyalgia, Osteoarthritis, RA Neurological History: Reports: None Psychiatric History: Reports: None Endocrine/Metabolic History: Reports: None Hematologic History: Reports: None Immunologic History: Reports: None Oncologic (Cancer) History: Reports: None Dermatologic History: Reports: None Other Dermatologic History: Raynaud's Syndrome - Infectious Disease History Infectious Disease History: Reports: Chicken Pox - Past Surgical History Head Surgeries/Procedures: Reports: None Cardiovascular Surgical History: Reports: None Female Surgical History: Reports: Hysterectomy, Other (See Below) Other Female Surgeries/Procedures: has left ovary Neurological Surgical History: Reports: Other (See Below) Other Neurological Surgeries/Procedures: Raynaud's Syndrome Musculoskeletal Surgical History: Reports: Other (See Below) Dermatological Surgical History: Reports: None Social & Family History - Family History Family Medical History: Noncontributory - Caffeine Use Caffeine Use: Reports: Coffee - Living Situation & Occupation Living situation: Reports: Occupation: Employed ED ROS GENERAL - Review of Systems Review Of Systems: ROS reveals no pertinent complaints other than HPI. ED EXAM, GENERAL - Physical Exam Exam: See Below (See dictation) Course - Vital Signs Last Recorded V/S: Last Vital Signs Temp 98.4 F 03/27/19 18:03 Pulse 89 03/27/19 18:54 Resp 16 03/27/19 18:54 BP 132/93 H 03/27/19 18:54 Pulse Ox 95 03/27/19 18:54 - Orders/Labs/Meds Orders: Active Orders 24 hr Category Date Time Status Admission Status [Patient Status] [ADT] Stat ADT 03/27/19 19:14 Ordered EKG Documentation Completion [RC] STAT Care 03/27/19 17:57 Active Nitroglycerin [Nitrostat] Med 03/27/19 17:58 Active 0.4 mg SL Q5M PRN Sodium Chloride 0.9% [Normal Saline] 1,000 ml Med 03/27/19 17:58 Active IV STAT Sodium Chloride 0.9% [Saline Flush] Med 03/27/19 17:57 Active 10 ml FLUSH ASDIRECTED PRN Sodium Chloride 0.9% [Saline Flush] Med 03/27/19 17:57 Active 2.5 ml FLUSH ASDIRECTED PRN Saline Lock Insert [OM.PC] Stat Oth 03/27/19 17:57 Ordered Medication Orders Sodium Chloride (Normal Saline) 1,000 mls @ 150 mls/hr IV STAT ONE Stop: 03/28/19 00:37 Last Admin: 03/27/19 18:09 Dose: 150 mls/hr Nitroglycerin (Nitrostat) 0.4 mg SL Q5M PRN PRN Reason: Chest Pain Sodium Chloride (Saline Flush) 10 ml FLUSH ASDIRECTED PRN PRN Reason: Keep Vein Open Sodium Chloride (Saline Flush) 2.5 ml FLUSH ASDIRECTED PRN PRN Reason: Keep Vein Open Labs: Laboratory Tests 03/27/19 03/27/19 03/27/19 Range/Units 18:18 18:18 18:18 WBC 6.01 (4.0-11.0) K/uL RBC 4.34 (4.30-5.90) M/uL Hgb 13.9 (12.0-16.0) g/dL Hct 40.7 (36.0-46.0) % MCV 93.8 (80.0-98.0) fL MCH 32.0 (27.0-32.0) pg MCHC 34.2 (31.0-37.0) g/dL RDW Std Deviation 46.9 (28.0-62.0) fl RDW Coeff of Fouzia 14 (11.0-15.0) % Plt Count 207 (150-400) K/uL MPV 10.20 (7.40-12.00) fL Neut % (Auto) 43.4 L (48.0-80.0) % Lymph % (Auto) 44.8 H (16.0-40.0) % [place] % (Auto) 9.2 (0.0-15.0) % Eos % (Auto) 1.8 (0.0-7.0) % Baso % (Auto) 0.8 (0.0-1.5) % Neut # (Auto) 2.6 (1.4-5.7) K/uL Lymph # (Auto) 2.7 H (0.6-2.4) K/uL [place] # (Auto) 0.6 (0.0-0.8) K/uL Eos # (Auto) 0.1 (0.0-0.7) K/uL Baso # (Auto) 0.1 (0.0-0.1) K/uL Nucleated RBC % 0.0 /100WBC Nucleated RBCs # 0 K/uL INR 0.98 Sodium 140 (136-145) mmol/L Potassium 4.1 (3.5-5.1) mmol/L Chloride 103 (98-107) mmol/L Carbon Dioxide 25.2 (21.0-32.0) mmol/L BUN 13 (7.0-18.0) mg/dL Creatinine 0.8 (0.6-1.0) mg/dL Est Cr Clr Drug Dosing 76.36 mL/min Estimated GFR (MDRD) > 60.0 ml/min Glucose 97 (74-106) mg/dL Calcium 10.1 (8.5-10.1) mg/dL Total Bilirubin 0.6 (0.2-1.0) mg/dL AST 36 (15-37) IU/L ALT 61 (14-63) IU/L Alkaline Phosphatase 68 (46-116) U/L Troponin I < 0.050 (0.000-0.056) ng/mL Total Protein 7.6 (6.4-8.2) g/dL Albumin 3.9 (3.4-5.0) g/dL Globulin 3.7 (2.6-4.0) g/dL Albumin/Globulin Ratio 1.1 (0.9-1.6) TSH 3rd Generation 2.33 (0.36-3.74) uIU/mL Meds: Medications Generic Name Dose Route Start Last Admin Trade Name Freq PRN Reason Stop Dose Admin Sodium Chloride 1,000 mls @ 150 mls/hr 03/27/19 17:58 03/27/19 18:09 Normal Saline IV 03/28/19 00:37 150 mls/hr STAT ONE Administration Nitroglycerin 0.4 mg 03/27/19 17:58 Nitrostat SL Q5M PRN Chest Pain Sodium Chloride 10 ml 03/27/19 17:57 Saline Flush FLUSH ASDIRECTED PRN Keep Vein Open Sodium Chloride 2.5 ml 03/27/19 17:57 Saline Flush FLUSH ASDIRECTED PRN Keep Vein Open Discontinued Medications Generic Name Dose Route Start Last Admin Trade Name Freq PRN Reason Stop Dose Admin Aspirin 324 mg 03/27/19 17:57 03/27/19 18:08 Aspirin PO 03/27/19 17:58 324 mg ONETIME ONE Administration Departure - Departure Time of Disposition: 19:16 Disposition: Refer to Observation Clinical Impression: Chest pain, rule out acute myocardial infarction Referrals: PCP,None [Primary Care Provider] - Forms: ED Department Discharge - My Orders Last 24 Hours: My Active Orders 03/27/19 17:57 EKG Documentation Completion [RC] STAT Sodium Chloride 0.9% [Saline Flush] 10 ml FLUSH ASDIRECTED PRN Sodium Chloride 0.9% [Saline Flush] 2.5 ml FLUSH ASDIRECTED PRN Saline Lock Insert [OM.PC] Stat 03/27/19 17:58 Nitroglycerin [Nitrostat] 0.4 mg SL Q5M PRN Sodium Chloride 0.9% [Normal Saline] 1,000 ml IV STAT 03/27/19 19:14 Admission Status [Patient Status] [ADT] Stat - Assessment/Plan Last 24 Hours: My Active Orders 03/27/19 17:57 EKG Documentation Completion [RC] STAT Sodium Chloride 0.9% [Saline Flush] 10 ml FLUSH ASDIRECTED PRN Sodium Chloride 0.9% [Saline Flush] 2.5 ml FLUSH ASDIRECTED PRN Saline Lock Insert [OM.PC] Stat 03/27/19 17:58 Nitroglycerin [Nitrostat] 0.4 mg SL Q5M PRN Sodium Chloride 0.9% [Normal Saline] 1,000 ml IV STAT 03/27/19 19:14 Admission Status [Patient Status] [ADT] Stat
--- NOTE | 2019-03-27 18:39 | CR ---
Indication: Chest pain. Technique: A single AP portable view of the chest was obtained. Comparison: January 22, 2019. Findings: The heart is borderline in size. The lungs are clear. No infiltrate, pleural effusion, or pneumothorax is identified. Impression: Stable chest x-ray. Dictated by Sweetie Gay MD @ Mar 27 2019 6:37PM Signed by Dr. Sweetie Gay @ Mar 27 2019 6:38PM
[2019-03-27 19:07] LABS: BLOOD UREA NITROGEN,BUN 13 mg/dL (7.0-18.0); CARBON DIOXIDE,CO2 25.2 mmol/L (21.0-32.0); CHLORIDE,CL 103 mmol/L (98-107); GLUCOSE RANDOM 97 mg/dL (74-106); POTASSIUM,K 4.1 mmol/L (3.5-5.1); SODIUM,NA 140 mmol/L (136-145)
--- NOTE | 2019-03-27 20:54 | PCM.HP.2 ---
H&P History of Present Illness - General Date of Service: 03/27/19 Admit Problem/Dx: Admission Diagnosis/Problem Admission Diagnosis/Problem Chest pain, rule out acute myocardial infarction - History of Present Illness Initial Comments - Free Text/Narative: 54 yo female with pmh of polyarthritis who presented with 30 minutes of chest pain. She describes the pain as sharp substernal as well as pressure. She has never had this pain before. She denies any shortness of breath or diaphoresis. The pain occurred will driving home from work and she decided to drive to the ED as she was afraid of being home alone. The pain resolved by the time she was in the ED. Mid-Sternal Chest Pain Score (Numeric/FACES): 7 - Related Data Allergies/Adverse Reactions: Allergies Allergy/AdvReac Type Severity Reaction Status Date / Time erythromycin base Allergy Hives Verified 03/27/19 21:01 latex Allergy Rash Verified 03/27/19 21:01 Clear Medical Tape Allergy Rash Uncoded 03/27/19 21:01 Home Medications: Home Meds Celecoxib [CeleBREX] 200 mg PO BEDTIME 07/22/16 [History] Cyclobenzaprine [Flexeril] 10 mg PO BID 07/22/16 [History] Omeprazole 20 mg PO BID 07/22/16 [History] Pregabalin [Lyrica] 200 mg PO TID 07/22/16 [History] amLODIPine [Norvasc] 5 mg PO BEDTIME 07/22/16 [History] Acetaminophen [Tylenol Extra Strength] 1,000 mg PO DAILY PRN 03/27/19 [History] cycloSPORINE [Restasis Multidose] 1 drop EYEBOTH BID 03/27/19 [History] Past Medical History HEENT History: Reports: None, Other (See Below) Other HEENT History: wears contacts Cardiovascular History: Reports: Hypertension, Other (See Below) Other Cardiovascular History: pericarditis 2009 Respiratory History: Reports: None Gastrointestinal History: Reports: GERD Genitourinary History: Reports: None [employer] History: Reports: None Musculoskeletal History: Reports: Fibromyalgia, Osteoarthritis, RA Neurological History: Reports: None Psychiatric History: Reports: None Endocrine/Metabolic History: Reports: None Hematologic History: Reports: None Immunologic History: Reports: None Oncologic (Cancer) History: Reports: None Dermatologic History: Reports: None Other Dermatologic History: Raynaud's Syndrome - Infectious Disease History Infectious Disease History: Reports: Chicken Pox - Past Surgical History Head Surgeries/Procedures: Reports: None Cardiovascular Surgical History: Reports: None Female Surgical History: Reports: Hysterectomy, Other (See Below) Other Female Surgeries/Procedures: has left ovary Neurological Surgical History: Reports: Other (See Below) Other Neurological Surgeries/Procedures: Raynaud's Syndrome Musculoskeletal Surgical History: Reports: Other (See Below) Dermatological Surgical History: Reports: None Social & Family History - Family History Family Medical History: Noncontributory - Tobacco Use Smoking Status *Q: Current Every Day Smoker Years of Tobacco use: 39 Packs/Tins Daily: 1 Used Tobacco, but Quit: No Second Hand Smoke Exposure: Yes - Caffeine Use Caffeine Use: Reports: Coffee - Alcohol Use Days Per Week of Alcohol Use: 5 Number of Drinks Per Day: 2 Total Drinks Per Week: 10 Date of Last Drink: 03/26/19 - Recreational Drug Use Recreational Drug Use: No - Living Situation & Occupation Living situation: Reports: Occupation: Employed H&P Review of Systems - Review of Systems: Review Of Systems: ROS reveals no pertinent complaints other than HPI. Exam - Exam Exam: See Below - Vital Signs Vital Signs: Last Vital Signs Temp 36.9 C 03/27/19 18:03 Pulse 89 03/27/19 18:54 Resp 16 03/27/19 18:54 BP 132/93 H 03/27/19 18:54 Pulse Ox 95 03/27/19 18:54 Weight: 88.507 kg - Exam General: Alert, Oriented Lungs: Clear to Auscultation, Normal Respiratory Effort Cardiovascular: Regular Rate, Regular Rhythm GI/Abdominal Exam: Soft, Non-Tender Extremities: Non-Tender, No Pedal Edema Skin: Warm, Dry, Intact Neurological: Cranial Nerves Intact, Reflexes Equal Bilateral - Patient Data Lab Results Last 24 hrs: Laboratory Results - last 24 hr 03/27/19 03/27/19 03/27/19 Range/Units 18:18 18:18 18:18 WBC 6.01 (4.0-11.0) K/uL RBC 4.34 (4.30-5.90) M/uL Hgb 13.9 (12.0-16.0) g/dL Hct 40.7 (36.0-46.0) % MCV 93.8 (80.0-98.0) fL MCH 32.0 (27.0-32.0) pg MCHC 34.2 (31.0-37.0) g/dL RDW Std Deviation 46.9 (28.0-62.0) fl RDW Coeff of Fouzia 14 (11.0-15.0) % Plt Count 207 (150-400) K/uL MPV 10.20 (7.40-12.00) fL Neut % (Auto) 43.4 L (48.0-80.0) % Lymph % (Auto) 44.8 H (16.0-40.0) % [place] % (Auto) 9.2 (0.0-15.0) % Eos % (Auto) 1.8 (0.0-7.0) % Baso % (Auto) 0.8 (0.0-1.5) % Neut # (Auto) 2.6 (1.4-5.7) K/uL Lymph # (Auto) 2.7 H (0.6-2.4) K/uL [place] # (Auto) 0.6 (0.0-0.8) K/uL Eos # (Auto) 0.1 (0.0-0.7) K/uL Baso # (Auto) 0.1 (0.0-0.1) K/uL Nucleated RBC % 0.0 /100WBC Nucleated RBCs # 0 K/uL INR 0.98 Sodium 140 (136-145) mmol/L Potassium 4.1 (3.5-5.1) mmol/L Chloride 103 (98-107) mmol/L Carbon Dioxide 25.2 (21.0-32.0) mmol/L BUN 13 (7.0-18.0) mg/dL Creatinine 0.8 (0.6-1.0) mg/dL Est Cr Clr Drug Dosing 76.36 mL/min Estimated GFR (MDRD) > 60.0 ml/min Glucose 97 (74-106) mg/dL Calcium 10.1 (8.5-10.1) mg/dL Total Bilirubin 0.6 (0.2-1.0) mg/dL AST 36 (15-37) IU/L ALT 61 (14-63) IU/L Alkaline Phosphatase 68 (46-116) U/L Troponin I < 0.050 (0.000-0.056) ng/mL Total Protein 7.6 (6.4-8.2) g/dL Albumin 3.9 (3.4-5.0) g/dL Globulin 3.7 (2.6-4.0) g/dL Albumin/Globulin Ratio 1.1 (0.9-1.6) TSH 3rd Generation 2.33 (0.36-3.74) uIU/mL Result Diagrams: 03/27/19 18:18 03/27/19 18:18 Problem List Initiated/Reviewed/Updated: Yes Orders Last 24hrs: Active Orders 24 hr Category Date Time Status Admission Status [Patient Status] [ADT] Stat ADT 03/27/19 19:14 Active EKG Documentation Completion [RC] STAT Care 03/27/19 17:57 Active TROPONIN I [CHEM] Q6H Lab 03/28/19 00:00 Ordered TROPONIN I [CHEM] Q6H Lab 03/28/19 06:00 Ordered Cyclobenzaprine [Flexeril] Med 03/27/19 21:00 Active 20 mg PO BID Nitroglycerin [Nitrostat] Med 03/27/19 17:58 Active 0.4 mg SL Q5M PRN Omeprazole Med 03/27/19 19:45 Active 20 mg PO BIDAC Pregabalin [Lyrica] Med 03/27/19 22:00 Active 200 mg PO TID Sodium Chloride 0.9% [Normal Saline] 1,000 ml Med 03/27/19 17:58 Active IV STAT Sodium Chloride 0.9% [Saline Flush] Med 03/27/19 17:57 Active 10 ml FLUSH ASDIRECTED PRN Sodium Chloride 0.9% [Saline Flush] Med 03/27/19 17:57 Active 2.5 ml FLUSH ASDIRECTED PRN amLODIPine [Norvasc] Med 03/27/19 21:00 Active 5 mg PO BEDTIME cycloSPORINE [Restasis Multidose] Med 03/27/19 19:45 Unverified DOSE UNIT RTE FREQ Saline Lock Insert [OM.PC] Stat Oth 03/27/19 17:57 Ordered Medication Orders Amlodipine Besylate (Norvasc) 5 mg PO BEDTIME GLENDA Cyclobenzaprine HCl (Flexeril) 20 mg PO BID GLENDA Sodium Chloride (Normal Saline) 1,000 mls @ 150 mls/hr IV STAT ONE Stop: 03/28/19 00:37 Last Admin: 03/27/19 18:09 Dose: 150 mls/hr Nitroglycerin (Nitrostat) 0.4 mg SL Q5M PRN PRN Reason: Chest Pain Omeprazole (Omeprazole) 20 mg PO BIDAC GLENDA Pregabalin (Lyrica) 200 mg PO TID GLENDA Sodium Chloride (Saline Flush) 10 ml FLUSH ASDIRECTED PRN PRN Reason: Keep Vein Open Sodium Chloride (Saline Flush) 2.5 ml FLUSH ASDIRECTED PRN PRN Reason: Keep Vein Open Assessment/Plan Comment:: 54 yo female admitted for chest pain rule out. We will monitor on telemetry and trend cardiac enzymes.
[2019-03-27] MEDS ORDERED: amLODIPine 5 MG Tab PO SCH (21:00)
[2019-03-27] MEDS ORDERED: Pregabalin 200 MG Cap PO SCH (22:00)
[2019-03-27] MEDS: Cyclobenzaprine 10 MG Tab PO SCH (22:29)
[2019-03-27] MEDS: Omeprazole 20 MG Cap.CR PO SCH (22:29)
[2019-03-27] MEDS: Pregabalin 50 MG Cap PO SCH (23:26)
[2019-03-28] MEDS ORDERED: Acetaminophen 325 MG Tab PO PRN (03:32)
[2019-03-28] MEDS: Pregabalin 50 MG Cap PO SCH (06:32)
[2019-03-28] MEDS: Omeprazole 20 MG Cap.CR PO SCH (06:33)
[2019-03-28] MEDS: Cyclobenzaprine 10 MG Tab PO SCH (08:24)
--- NOTE | 2019-03-28 08:24 | PCM.DCSUM1 ---
<Dora Victoria - Last Filed: 03/28/19 11:17> Discharge Summary - Hospital Course HPI Initial Comments: Admission Date: 02/24/19 Discharge Date: 02/25/19 Admission Diagnosis: 1. Chest pain, ACS rule out 2. Chronic conditions- HTN, RA, GERD, fibromyalgia Discharge Diagnosis: 1. Chest pain, ACS rule out 2. Chronic conditions- HTN, RA, GERD, fibromyalgia Procedures: None Consults: None Hospital Course: This is a 56-year-old female with past medical history of hypertension, pericarditis 2009, GERD, fibromyalgia, rheumatoid arthritis who presented to the ER with chest pain. She reported the chest pain came on while driving lasted a few minutes but resolved before arrival in the ED. In the ER, work up did no show any leukocytosis, anemia, or electrolytes abnormalities, and TSH was within normal limits. Initial troponin was negative. EKG showed normal sinus rhythm without ischemic changes. CXR showed no acute cardiopulmonary process. She was admitted to the medical surgical floor for observation. Her troponins were trended and negative x 3. She was monitored on telemetry without any significant events. She did not experience any additional episodes of chest pain. She is scheduled to have a stress test performed in [place] in May as part of her health insurance work up. Her last stress test was 2 years ago and she reports it was normal. She was continued on her home meds for her chronic conditions. By day of discharge, patient stated she felt better and was ready to go home. Disposition: Home Discharge Condition: vitals stable, tolerating oral diet, ambulating without difficulty, symptom improvement Discharge Instructions: heart healthy diet as tolerated, activity as tolerated, take medications as prescribed. Symptoms to report to physician include fever/ chills, chest pain, shortness of breath, abdominal pain, erythema, drainage/ discharge, or not improving as expected. Discharge Medications: Celecoxib [CeleBREX] 200 mg PO BEDTIME Cyclobenzaprine [Flexeril] 10 mg PO BID Omeprazole 20 mg PO BID Pregabalin [Lyrica] 200 mg PO TID amLODIPine [Norvasc] 5 mg PO BEDTIME Acetaminophen [Tylenol Extra Strength] 1,000 mg PO DAILY PRN cycloSPORINE [Restasis Multidose] 1 drop EYEBOTH BID Follow-up: 1. PCP- Dr. Ballard 2. Outpatient stress test - Discharge Data Discharge Date: 03/28/19 Discharge Disposition: Home, Self-Care 01 Condition: Stable - Referral to Home Health Primary Care Physician: PCP None - Discharge Plan *PRESCRIPTION DRUG MONITORING PROGRAM REVIEWED*: No *COPY OF PRESCRIPTION DRUG MONITORING REPORT IN PATIENT NITIN: No Home Medications: Home Meds Celecoxib [CeleBREX] 200 mg PO BEDTIME 07/22/16 [History] Cyclobenzaprine [Flexeril] 10 mg PO BID 07/22/16 [History] Omeprazole 20 mg PO BID 07/22/16 [History] Pregabalin [Lyrica] 200 mg PO TID 07/22/16 [History] amLODIPine [Norvasc] 5 mg PO BEDTIME 07/22/16 [History] Acetaminophen [Tylenol Extra Strength] 1,000 mg PO DAILY PRN 03/27/19 [History] cycloSPORINE [Restasis Multidose] 1 drop EYEBOTH BID 03/27/19 [History] Patient Handouts: Nonspecific Chest Pain, [id number] Referrals: [facility] [Outside] () Roni Ballard MD [Physician] - 04/04/19 10:00 am (Arrive 15 minutes early with photo ID and insurance card. If you are not early they will not see you. ) - Discharge Summary/Plan Comment DC Time >30 min.: No - Patient Data Vitals - Most Recent: Last Vital Signs Temp 97.2 F 03/28/19 07:44 Pulse 62 03/28/19 07:44 Resp 16 03/28/19 07:44 BP 126/87 03/28/19 07:44 Pulse Ox 97 03/28/19 07:44 Weight - Most Recent: 88.507 kg I&O - Last 24 hours: Intake & Output 03/27/19 03/28/19 03/28/19 22:59 06:59 14:59 Intake Total 1100 Output Total 1950 Balance -850 Lab Results - Last 24 hrs: Laboratory Results - last 24 hr 03/27/19 03/27/19 03/27/19 Range/Units 18:18 18:18 18:18 WBC 6.01 (4.0-11.0) K/uL RBC 4.34 (4.30-5.90) M/uL Hgb 13.9 (12.0-16.0) g/dL Hct 40.7 (36.0-46.0) % MCV 93.8 (80.0-98.0) fL MCH 32.0 (27.0-32.0) pg MCHC 34.2 (31.0-37.0) g/dL RDW Std Deviation 46.9 (28.0-62.0) fl RDW Coeff of Fouzia 14 (11.0-15.0) % Plt Count 207 (150-400) K/uL MPV 10.20 (7.40-12.00) fL Neut % (Auto) 43.4 L (48.0-80.0) % Lymph % (Auto) 44.8 H (16.0-40.0) % Curry % (Auto) 9.2 (0.0-15.0) % Eos % (Auto) 1.8 (0.0-7.0) % Baso % (Auto) 0.8 (0.0-1.5) % Neut # (Auto) 2.6 (1.4-5.7) K/uL Lymph # (Auto) 2.7 H (0.6-2.4) K/uL Curry # (Auto) 0.6 (0.0-0.8) K/uL Eos # (Auto) 0.1 (0.0-0.7) K/uL Baso # (Auto) 0.1 (0.0-0.1) K/uL Nucleated RBC % 0.0 /100WBC Nucleated RBCs # 0 K/uL INR 0.98 Sodium 140 (136-145) mmol/L Potassium 4.1 (3.5-5.1) mmol/L Chloride 103 (98-107) mmol/L Carbon Dioxide 25.2 (21.0-32.0) mmol/L BUN 13 (7.0-18.0) mg/dL Creatinine 0.8 (0.6-1.0) mg/dL Est Cr Clr Drug Dosing 76.36 mL/min Estimated GFR (MDRD) > 60.0 ml/min Glucose 97 (74-106) mg/dL Calcium 10.1 (8.5-10.1) mg/dL Total Bilirubin 0.6 (0.2-1.0) mg/dL AST 36 (15-37) IU/L ALT 61 (14-63) IU/L Alkaline Phosphatase 68 (46-116) U/L Troponin I < 0.050 (0.000-0.056) ng/mL Total Protein 7.6 (6.4-8.2) g/dL Albumin 3.9 (3.4-5.0) g/dL Globulin 3.7 (2.6-4.0) g/dL Albumin/Globulin Ratio 1.1 (0.9-1.6) TSH 3rd Generation 2.33 (0.36-3.74) uIU/mL 03/28/19 03/28/19 Range/Units 00:18 06:12 WBC (4.0-11.0) K/uL RBC (4.30-5.90) M/uL Hgb (12.0-16.0) g/dL Hct (36.0-46.0) % MCV (80.0-98.0) fL MCH (27.0-32.0) pg MCHC (31.0-37.0) g/dL RDW Std Deviation (28.0-62.0) fl RDW Coeff of Fouzia (11.0-15.0) % Plt Count (150-400) K/uL MPV (7.40-12.00) fL Neut % (Auto) (48.0-80.0) % Lymph % (Auto) (16.0-40.0) % Curry % (Auto) (0.0-15.0) % Eos % (Auto) (0.0-7.0) % Baso % (Auto) (0.0-1.5) % Neut # (Auto) (1.4-5.7) K/uL Lymph # (Auto) (0.6-2.4) K/uL Curry # (Auto) (0.0-0.8) K/uL Eos # (Auto) (0.0-0.7) K/uL Baso # (Auto) (0.0-0.1) K/uL Nucleated RBC % /100WBC Nucleated RBCs # K/uL INR Sodium (136-145) mmol/L Potassium (3.5-5.1) mmol/L Chloride (98-107) mmol/L Carbon Dioxide (21.0-32.0) mmol/L BUN (7.0-18.0) mg/dL Creatinine (0.6-1.0) mg/dL Est Cr Clr Drug Dosing mL/min Estimated GFR (MDRD) ml/min Glucose (74-106) mg/dL Calcium (8.5-10.1) mg/dL Total Bilirubin (0.2-1.0) mg/dL AST (15-37) IU/L ALT (14-63) IU/L Alkaline Phosphatase (46-116) U/L Troponin I < 0.050 < 0.050 (0.000-0.056) ng/mL Total Protein (6.4-8.2) g/dL Albumin (3.4-5.0) g/dL Globulin (2.6-4.0) g/dL Albumin/Globulin Ratio (0.9-1.6) TSH 3rd Generation (0.36-3.74) uIU/mL Med Orders - Current: Current Medications Acetaminophen (Tylenol) 650 mg PO Q4H PRN PRN Reason: Headache/Pain Last Admin: 03/28/19 04:06 Dose: 650 mg Amlodipine Besylate (Norvasc) 5 mg PO BEDTIME [facility] Last Admin: 03/27/19 22:30 Dose: 5 mg Cyclobenzaprine HCl (Flexeril) 20 mg PO BID [facility] Last Admin: 03/27/19 22:29 Dose: 20 mg Nitroglycerin (Nitrostat) 0.4 mg SL Q5M PRN PRN Reason: Chest Pain [facility] Last Admin: 03/28/19 06:33 Dose: 20 mg Cyclosporine [ Restasis Multidose] 1 Drop 1 each EYEBOTH BID [facility] Pregabalin (Lyrica) 200 mg PO TID [facility] Last Admin: 03/28/19 06:32 Dose: 200 mg Sodium Chloride (Saline Flush) 10 ml FLUSH ASDIRECTED PRN PRN Reason: Keep Vein Open Sodium Chloride (Saline Flush) 2.5 ml FLUSH ASDIRECTED PRN PRN Reason: Keep Vein Open Discontinued Medications Aspirin (Aspirin) 324 mg PO ONETIME ONE Stop: 03/27/19 17:58 Last Admin: 03/27/19 18:08 Dose: 324 mg Sodium Chloride (Normal Saline) 1,000 mls @ 150 mls/hr IV STAT ONE Stop: 03/28/19 00:37 Last Admin: 03/27/19 18:09 Dose: 150 mls/hr Pregabalin (Lyrica) 200 mg PO TID [facility] Last Admin: 03/27/19 23:43 Dose: Not Given <Jorge Hurtado - Last Filed: 03/28/19 18:52> Discharge Summary - Referral to Home Health Primary Care Physician: PCP None - Patient Data Vitals - Most Recent: Last Vital Signs Temp 36.6 C 03/28/19 12:00 Pulse 67 03/28/19 12:00 Resp 16 03/28/19 12:00 BP 121/80 03/28/19 12:00 Pulse Ox 96 03/28/19 12:00 I&O - Last 24 hours: Intake & Output 03/28/19 03/28/19 03/28/19 06:59 14:59 22:59 Intake Total 1100 1240 Output Total 1950 2100 Balance -850 -860 Lab Results - Last 24 hrs: Laboratory Results - last 24 hr 03/27/19 03/28/19 03/28/19 Range/Units 18:18 00:18 06:12 Sodium 140 (136-145) mmol/L Potassium 4.1 (3.5-5.1) mmol/L Chloride 103 (98-107) mmol/L Carbon Dioxide 25.2 (21.0-32.0) mmol/L BUN 13 (7.0-18.0) mg/dL Creatinine 0.8 (0.6-1.0) mg/dL Est Cr Clr Drug Dosing 76.36 mL/min Estimated GFR (MDRD) > 60.0 ml/min Glucose 97 (74-106) mg/dL Calcium 10.1 (8.5-10.1) mg/dL Total Bilirubin 0.6 (0.2-1.0) mg/dL AST 36 (15-37) IU/L ALT 61 (14-63) IU/L Alkaline Phosphatase 68 (46-116) U/L Troponin I < 0.050 < 0.050 < 0.050 (0.000-0.056) ng/mL Total Protein 7.6 (6.4-8.2) g/dL Albumin 3.9 (3.4-5.0) g/dL Globulin 3.7 (2.6-4.0) g/dL Albumin/Globulin Ratio 1.1 (0.9-1.6) TSH 3rd Generation 2.33 (0.36-3.74) uIU/mL Med Orders - Current: Current Medications Discontinued Medications Acetaminophen (Tylenol) 650 mg PO Q4H PRN PRN Reason: Headache/Pain Last Admin: 03/28/19 04:06 Dose: 650 mg Amlodipine Besylate (Norvasc) 5 mg PO BEDTIME [facility] Last Admin: 03/27/19 22:30 Dose: 5 mg Aspirin (Aspirin) 324 mg PO ONETIME ONE Stop: 03/27/19 17:58 Last Admin: 03/27/19 18:08 Dose: 324 mg Cyclobenzaprine HCl (Flexeril) 20 mg PO BID [facility] Last Admin: 03/28/19 08:24 Dose: 20 mg Sodium Chloride (Normal Saline) 1,000 mls @ 150 mls/hr IV STAT ONE Stop: 03/28/19 00:37 Last Admin: 03/27/19 18:09 Dose: 150 mls/hr Nitroglycerin (Nitrostat) 0.4 mg SL Q5M PRN PRN Reason: Chest Pain Omeprazole (Omeprazole) 20 mg PO BIDAC [facility] Last Admin: 03/28/19 06:33 Dose: 20 mg Cyclosporine [ Restasis Multidose] 1 Drop 1 each EYEBOTH BID [facility] Last Admin: 03/28/19 08:25 Dose: Not Given Pregabalin (Lyrica) 200 mg PO TID [facility] Last Admin: 03/27/19 23:43 Dose: Not Given Pregabalin (Lyrica) 200 mg PO TID [facility] Last Admin: 03/28/19 06:32 Dose: 200 mg Sodium Chloride (Saline Flush) 10 ml FLUSH ASDIRECTED PRN PRN Reason: Keep Vein Open Sodium Chloride (Saline Flush) 2.5 ml FLUSH ASDIRECTED PRN PRN Reason: Keep Vein Open - Free Text/Narrative Note: I have seen and evaluated the patient with the resident. I have discussed findings and treatment plan with the resident. I agree with the assessment and plan outlined in the following note.
[2019-03-28] MEDS ORDERED: Cyclosporine [Restasis Multidose] 1 DROP EYEBOTH SCH (09:00)
[2019-03-28 12:14] VITALS: BP 121/80; PULSE 67
== END 2019-03-28 12:35 | disposition home or self-care (01) ==
LOC: MW.ED 17:53 → MW.MS 19:14
PROVIDERS: ADMIT Internal Medicine; ATTEND Internal Medicine
DX: R07.2 Precordial pain (principal); I10 Essential (primary) hypertension; K21.9 Gastro-esophageal reflux disease without esophagitis; F17.200 Nicotine dependence, unspecified, uncomplicated; M79.7 Fibromyalgia; M06.9 Rheumatoid arthritis, unspecified; Z88.1 Allergy status to other antibiotic agents; Z91.040 Latex allergy status; Z91.048 Other nonmedicinal substance allergy status; Z79.1 Long term (current) use of non-steroidal anti-inflammatories (NSAID); Z79.899 Other long term (current) drug therapy
CPT/HCPCS: 36415; 71045; 80053; 84443; 84484; 85025; 85610; 93005; 96360; 96361; 99285; A9270; J7040; G0378

== ENCOUNTER 2020-12-21 07:37 | Emergency (ER) | payer BC ==
[2020-12-21 07:52] VITALS: PULSE 92
[2020-12-21] MEDS ORDERED: Ketorolac 15 MG/ML SDV IM ONE (08:07)
[2020-12-21] MEDS ORDERED: Dexamethasone 4 MG Tab PO ONE (08:07)
--- NOTE | 2020-12-21 08:11 | EDM.PDOC ---
ED HPI GENERAL MEDICAL PROBLEM - General Chief Complaint: Upper Extremity Injury/Pain Stated Complaint: RA FLAREUP IN LEFT WRIST Time Seen by Provider: 12/21/20 07:59 - History of Present Illness INITIAL COMMENTS - FREE TEXT/NARRATIVE: CHIEF COMPLAINT(S): Left wrist pain HISTORY OF PRESENT ILLNESS: This is a 55-year-old woman with a past medical history of rheumatoid arthritis who comes to the emergency department with a chi ef complaint of left wrist pain and swelling. The patient states that over the last week she has been experiencing left wrist pain and swelling. She describes her pain as throbbing rated 10 out of 10 which is worse with movement. She denies any fevers, chills, redness or warmth. She states that she can use her left wrist and has full range of movement. She states that she has an appointment in 1 week to get an injection. She states that this is similar to the past and has similar swelling approximately 1-1/2 years ago. She states that she has been trying Tylenol arthritis, elevation and ice. She states that the elevation and icing the wrist do help. She denies any numbness, tingling or weakness. She denies any injury to her wrist. She states that this usually happens when he gets rainy and humid. REVIEW OF SYSTEMS: Constitutional: Denies fever, chills. Eyes: Denies eye pain Ears, Nose, Mouth, & Throat: Denies earache Cardiovascular: Denies chest pain Respiratory: Denies shortness of breath Gastrointestinal: Denies Nausea, vomiting, diarrhea, hematochezia. Genitourinary: Denies hematuria Skin:Denies a rash MSK: Positive for left wrist pain and swelling Neurological: Denies blurred vision, numbness, tingling, weakness Psychiatric: Denies depression PAST MEDICAL HISTORY: As per history of present illness and as reviewed below otherwise noncontributory. SURGICAL HISTORY: As per history of present illness and as reviewed below otherwise noncontributory. SOCIAL HISTORY: As per history of present illness and as reviewed below otherwise noncontributory. FAMILY HISTORY: As per history of present illness and as reviewed below otherwise noncontributory. EXAMINATION OF ORGAN SYSTEMS/BODY AREAS: Constitutional: Blood pressure is 140/84, heart rate 92, respiratory rate 16 with an oxygen saturation of 98% on room air. Temperature 36.1 General: Overall well-appearing woman who is in no acute distress. Psychiatric: Appropriate mood and affect. Eyes: No scleral icterus or conjunctival erythema ENMT: Moist mucous membranes. No pharyngeal erythema Cardiovascular: Regular, rate, and rhythm. No gallops, murmurs, or rubs. Bilateral upper extremity pulses symmetric and intact. No peripheral edema. No JVD. Respiratory: Lungs clear to auscultation bilaterally. No wheezes, rales, or rhonchi. Gastrointestinal: Soft, non-tender, non-distended. Normoactive bowel sounds Genitourinary: No suprapubic tenderness Musculoskeletal: The patient has full range of motion of the left wrist and left fingers. There is mild swelling on the posterior aspect of the left wrist. No warmth or redness noted. With compression of the joint there was no exacerbation of pain. Skin: No lesions or abrasions. Neurological: Alert, GCS 15 distal sensation is intact. Strength 5 out of 5 in bilateral upper extremities. MEDICAL DECISION MAKING AND COURSE IN THE ED WITH INTERPRETATION/REVIEW OF DIAGNOSTIC STUDIES: This is a 55-year-old with 1 with a past medical history of rheumatoid arthritis who comes to the emergency department with what appears to be an acute rheumatic flare of her left wrist which is similar to prior. At this time we will provide the patient with Toradol and Decadron. Given the patient is having an injection in approximately 1 week I did discuss with her follow-up. I discussed that she should continue using her Tylenol arthritis, her home Celebrex, ice and elevate. She is to return for any new or worsening symptoms. She was amenable to discharge at this time and had no further questions. DISPOSITION: The patient was discharged home in stable condition. The patient will follow up with her scheduled appointment next week CONDITION: Fair PROCEDURES: None FINAL IMPRESSION(S)/DIAGNOSES: 1. Acute breast pain likely secondary to rheumatic flare Jorge A Silverio M.D. Left Hand Pain Score (Numeric/FACES): 10 - Related Data Allergies Allergy/AdvReac Type Severity Reaction Status Date / Time erythromycin base Allergy Hives Verified 12/21/20 07:48 latex Allergy Rash Verified 12/21/20 07:48 Clear Medical Tape Allergy Rash Uncoded 12/21/20 07:48 Home Meds: Home Meds Celecoxib [CeleBREX] 200 mg PO BEDTIME 07/22/16 [History] Cyclobenzaprine [Flexeril] 10 mg PO BID 07/22/16 [History] Omeprazole 20 mg PO BID 07/22/16 [History] Pregabalin [Lyrica] 200 mg PO TID 07/22/16 [History] amLODIPine [Norvasc] 10 mg PO BEDTIME 07/22/16 [History] Past Medical History HEENT History: Reports: None, Other (See Below) Other HEENT History: wears contacts Cardiovascular History: Reports: Hypertension, Other (See Below) Other Cardiovascular History: pericarditis 2009 Respiratory History: Reports: None Gastrointestinal History: Reports: GERD Genitourinary History: Reports: None [employer] History: Reports: None Musculoskeletal History: Reports: Fibromyalgia, Osteoarthritis, RA Neurological History: Reports: None Psychiatric History: Reports: None Endocrine/Metabolic History: Reports: None Hematologic History: Reports: None Immunologic History: Reports: None Oncologic (Cancer) History: Reports: None Dermatologic History: Reports: None Other Dermatologic History: Raynaud's Syndrome - Infectious Disease History Infectious Disease History: Reports: Chicken Pox Other Infectious Disease History: Rt foot sole - Past Surgical History Head Surgeries/Procedures: Reports: None Cardiovascular Surgical History: Reports: None Female Surgical History: Reports: Hysterectomy, Other (See Below) Other Female Surgeries/Procedures: has left ovary Neurological Surgical History: Reports: Other (See Below) Other Neurological Surgeries/Procedures: Raynaud's Syndrome Musculoskeletal Surgical History: Reports: Other (See Below) Other Musculoskeletal Surgeries/Procedures:: Both wrist Sx. Bilateral bunion sx Dermatological Surgical History: Reports: None Social & Family History - Family History Family Medical History: No Pertinent Family History - Caffeine Use Caffeine Use: Reports: Coffee - Recreational Drug Use Recreational Drug Use: No - Living Situation & Occupation Living situation: Reports: Occupation: Employed Review of Systems - Review of Systems Review Of Systems: See Below ED EXAM, GENERAL - Physical Exam Exam: See Below Course - Vital Signs Last Recorded V/S: Last Vital Signs Temp 36.1 C 12/21/20 07:49 Pulse 92 12/21/20 07:49 Resp 16 12/21/20 07:49 BP 112/65 12/21/20 08:37 Pulse Ox 98 12/21/20 07:49 - Orders/Labs/Meds Meds: Medications Discontinued Medications Generic Name Dose Route Start Last Admin Trade Name Soraya MARTÍNEZRichelle Reason Stop Dose Admin Dexamethasone 6 mg 12/21/20 08:07 12/21/20 08:19 Dexamethasone 4 Mg Tab PO 12/21/20 08:08 6 mg ONETIME ONE Administration Ketorolac Tromethamine 15 mg 12/21/20 08:07 12/21/20 08:19 Ketorolac 15 Mg/Ml Sdv IM 12/21/20 08:08 15 mg ONETIME ONE Administration Departure - Departure Time of Disposition: 08:11 Disposition: Home, Self-Care 01 Condition: Fair Clinical Impression: Flare of rheumatoid arthritis - Discharge Information *PRESCRIPTION DRUG MONITORING PROGRAM REVIEWED*: No *COPY OF PRESCRIPTION DRUG MONITORING REPORT IN PATIENT NITIN: No Instructions: Arthritis, [id number] Referrals: Neal Cash MD [Primary Care Provider] - Forms: ED Department Discharge Additional Instructions: You were evaluated today on an emergent basis. At this time I do believe you are having a flare of your arthritis. Given that you have an appointment in 1 week with your recreation facility manager for an injection I do recommend that you continue to use Tylenol arthritis as you have been taking, ice the affected area, elevate the affected area and take your home Celebrex. If you have any new or worsening symptoms please return to the emergency department. The symptoms include: Redness, fever, warmth, worsening pain. [facility] [address] [place] [address] [place] [address] The patient is informed of any results of their evaluation and diagnostic workup and all questions are answered. They are given discharge instructions and return precautions. The patient is stable for discharge. The patient states they understand and agree with the plan and that they will return if their symptoms get worse or if they have any new concerns. The following information is given to patients seen in the emergency department who are being discharged to home. This information is to outline your options for follow-up care. We provide all patients seen in our emergency department with a follow-up referral. The need for follow-up, as well as the timing and circumstances, are variable depending upon the specifics of your emergency department visit. If you don't have a primary care physician on staff, we will provide you with a referral. We always advise you to contact your personal physician following an emergency department visit to inform them of the circumstance of the visit and for follow-up with them and/or the need for any referrals to a consulting specialist. The emergency department will also refer you to a specialist when appropriate. This referral assures that you have the opportunity for follow-up care with a specialist. All of these measure are taken in an effort to provide you with optimal care, which includes your follow-up. Under all circumstances we always encourage you to contact your private physician who remains a resource for coordinating your care. When calling for follow-up care, please make the office aware that this follow-up is from your recent emergency room visit. If for any reason you are refused follow-up, please contact the [facility] Emergency Department at and asked to speak to the emergency department charge nurse. Sepsis Event Note (ED) - Evaluation Sepsis Screening Result: No Definite Risk - Focused Exam Vital Signs: Vital Signs Temp Pulse Resp BP Pulse Ox 12/21/20 08:37 112/65 12/21/20 07:49 36.1 C 92 16 140/84 98
[2020-12-21 08:37] VITALS: BP 112/65
== END 2020-12-21 08:37 | disposition home or self-care (01) ==
LOC: MW.ED 07:37
DX: M06.9 Rheumatoid arthritis, unspecified (principal); I10 Essential (primary) hypertension; K21.9 Gastro-esophageal reflux disease without esophagitis; Z79.899 Other long term (current) drug therapy; Z88.1 Allergy status to other antibiotic agents; Z91.040 Latex allergy status; Z91.09 Other allergy status, other than to drugs and biological substances
CPT/HCPCS: 96372; 99283; J1885; J8540